=== PATIENT | male | born 1945 | race Caucasian/White ===

== ENCOUNTER 2019-12-21 08:36 | Outpatient (CLI) | payer MEDICARE, OTHER, SELFPAY ==
--- NOTE | 2019-12-21 09:00 | CT_ITS ---
WS: [id number] CT CHEST TECHNIQUE: Contrast enhanced CT of the chest with coronal and sagittal reformatted images. CLINICAL INFORMATION: lung nodule COMPARISON: Multiple Prior chest CTs including 10 25,018 and 9 ,017 DLP: 1138.[address] scans at [facility] use at least one of these dose optimization techniques: automat ed exposure control; mA and/or kV adjustment per patient size (includes targeted exams where dose is matched to clinical indication); or iterative reconstruction. FINDINGS: Moderate chronic emphysematous changes. No acute pulmonary infiltrates. No focal pneumonia. No consol idation or pleural fluid. Slight atelectasis in the lung bases. Previously described pulmonary nodule left upper lobe along the hilum measuring 6 mm is unchanged. A few calcified granulomas. Faint hazy groundglass opacity in the right upper lobe measuring 5 mm was present previously and unchanged. Scar tional tiny noncalcified pulmonary nodule right upper lobe subpleural measuring 3 mm is unchanged. Normal thyroid gland. Normal caliber thoracic aorta. Proximal main pulmonary arteries are normal. No mediastinal or hilar lymphadenopathy. No axillary lymphadenopathy. Adrenal glands are normal. Exophytic increased attenuation left renal lesion likely hemorrhagic cyst measuring 3.1 cm with additional smaller similar-appearing renal cyst. This can be followed up with u ltrasound. Small esophageal hiatal hernia. Fatty atrophy of the pancreas. CT/CT chest w con* [id number] IMPRESSION: 1. 6 mm noncalcified pulmonary nodule left upper lobe along the left hilum is unchanged. Additional faint hazy groundglass opacity in the right upper lobe me asuring 5 mm is also unchanged. 2. Tiny noncalcified nodule right upper lobe measuring 3 mm also stable. 3. Recommend 12 month follow-up. 4. No mediastinal or hilar lymphadenopathy. 5. Vascular calcification including coronary. 6. Small esophageal hiatal hernia. 7. Exophytic increased attenuation left renal lesion likely complex cysts. Thi s measures 3.1 cm and appears stable. This can be followed up with ultrasound.
[2019-12-21 09:33] LABS: Blood Urea Nitrogen 15 mg/dL (8-23)
[2019-12-21] MEDS: iodixanol 320 mg/mL 100mL Btl IV (09:39)
== END 2019-12-21 08:37 | disposition home or self-care (01) ==
PROVIDERS: Family Provider Family Medicine; PCP Family Medicine; Visit Provider Thoracic Surgery (Cardiothoracic Vascular Surgery)
DX: R91.1 Solitary pulmonary nodule (principal); K44.9 Diaphragmatic hernia without obstruction or gangrene; N28.9 Disorder of kidney and ureter, unspecified
CPT/HCPCS: 71260; 82565; 84520; Q9967

== ENCOUNTER 2020-02-02 20:07 | Emergency (ER) | payer MEDICARE, OTHER, SELFPAY ==
--- NOTE | 2020-02-02 20:14 | XR_ITS ---
WS: [id number] Portable AP upright chest, 02/02/2020 Clinical Data: sob Comparison: PA and lateral chest, 07/11/2014. Findings: No nodules, masses or effusions are seen. The heart is normal. The pulmonary vascularity is not increased. No pneumonia or pneumothorax is seen. The aortic arch and descending aorta are minima lly tortuous. XR/XR chest 1V portable [id number] Impression: Atherosclerosis.
[2020-02-02 21:04] VITALS: BP 162/86; PULSE 79; RESP 17; TEMP 36.9; O2SAT 97; BMI 30.5
--- NOTE | 2020-02-02 22:06 | ED_ITS ---
HPI - COVID General: Chief Complaint: COVID symptoms Stated Complaint: Covid symptoms/test today/ waiting room w/tv Time Seen by Provider: 02/02/20 21:58 Source: patient Mode of arrival: ambulatory Limitations: no limitations Triage information: Has fever, cough or shortness of breath . Exposure to COVID + person last 14 days History of Present Illness: HPI Narrative: Mr. Davis is a nice 74-year-old male comes in complaining of cough, headache and fever. Patient states his symptoms began last night. Fevers been as high as 102. His cough is dry and nonproductive. He has had some nauseousness but has not vomited. He denies any diarrhea or constipation. Patient has no known ill exposures but the Covid pandemic is rampant throughout her region at this time. Patient denies any history of lung problems but is a diabetic and has high blood pressure. He denies any chest pain or shortness of breath. COVID 19 common symptoms: positive fever(s), chills, non-productive cough, f atigue, body aches and nausea; negative productive cough, dyspnea, headache(s), throat pain, vomiting or diarrhea COVID 19 other sytmptoms: negative chest pain or confusion COVID Results: SARS-CoV-2 Antigen (Rapid) Pending 02/02/20 22:50 02/02/20 SARS-CoV-2 RNA (RT-PCR) Pending 02/02/20 14:34 02/02/20 Review of Systems Const: Reports: fever(s), chills, body aches, fatigue and malaise; Denies: diaphoresis Eyes: Denies: change in vision, blurry vision, photophobia, eye discomfort, eye discharge, eye redness or yellow eyes ENMT: Denies: throat pain, odynophagia, hoarseness, swelling of lips/tongue, ear or mastoid pain, ear discharge, change in hearing or nasal discharge Card: Denies: chest pain, palpitations, irregular heart rhythm, edema, lightheadedness, syncope, pre-syncope, dyspnea on exertion or orthopnea Resp: Reports: non-productive cough; Denies: dyspnea, productive cough, wheezing, hemoptysis or chest congestion GI: Reports: nausea; Denies: abdominal pain, vomiting, hematemesis, coffee ground emesis, heartburn, diarrhea, constipation, GI cramping, hematochezia or melena : Denies: flank pain, dysuria, urinary frequency, urinary urgency or hematuria Musc: Denies: neck pain, back pain, extremity pain, extremity swelling, joint pain, joint swelling, joint redness, joint warmth or joint stiffness Skin/Breast: Denies: rash, pruritus, erythema, skin pain or skin tenderness Neuro: Denies: headache(s), numbness in extremities, weakness in extremities, sensory changes, lack of coordination, difficulty walking, dizziness, vertigo, confusion, Slurred speech present or seizure-like activity Ken/Lymph: Denies: easy bruising, easy bleeding, petechiae, purpura or enlarged lymph nodes All/Imm: Denies: urticaria, throat swelling, tongue swelling, facial swelling or acute wheezing PFSH ED PFSH: Medical History DM type 2 (diabetes mellitus, type 2) Hypertension Lung nodule Surgical History H/O hernia repair History of left knee replacement History of throat surgery Family History Father CAD (coronary artery disease) Social History Smoking and tobacco status: current every day smoker smokeless tobacco Alcohol intake: never Physical Exam Const: COMMON NORMALS: no acute distress, patient oriented x3, no limitations and alert GENERAL APPEARANCE: cooperative HENMT: COMMON NORMALS: normocephalic, atraumatic, external ears normal, EAC's normal and Normal external nose present HEAD & SCALP: normal to inspection, normocephalic and atraumatic FACE & SINUS: normal facial exam and face symmetric NOSE: Normal external nose present and Normal nares present EXTERNAL EAR: Yes external ears normal EXTERNAL AUDITORY CANAL: EAC's normal MOUTH: Normal oral and palatal mucosa present, lip normal and tongue normal Eye: COMMON NORMALS: Equal, round and reactive pupils present and conjunctivae normal GENERAL EYE: appearance normal, both eyes and all related structures ALIGNMENT: Yes alignment normal PERIORBITAL: periorbital findings normal EYELID: eyelids normal CONJUNCTIVA: Yes conjunctivae normal SCLERA: sclerae normal PUPIL: Yes Equal, round and reactive pupils present Neck/C-Spine: COMMON NORMALS: full ROM, no lymphadenopathy, supple, no meningeal signs and no JVD GENERAL: Yes normal visual inspection and Yes trachea midline Chest: COMMONS NORMALS: normal inspection of the chest and normal palpation of entire chest wall Resp: COMMON NORMALS: normal respiratory effort, No retractions, No use of accessory muscles and clear to auscultation bilaterally EFFORT & INSPECTION: Yes able to speak in complete sentences and Yes symmetric chest movement AUSCULTATION: clear to auscultation bilaterally, no crackles, no rales, no rhonchi and no wheezes Cardio: COMMON NORMALS: no JVD, regular rate, regular rhythm, S1 normal heart sound present and S2 normal heart sound present RATE: regular rate RHYTHM: regular rhythm HEART SOUNDS: S1 normal heart sound present, S2 normal heart sound present, no click, no gallops, no murmurs and no rubs GI: COMMON NORMALS: Soft to palpation and No hepatosplenomegaly present PALPATION: Yes Soft to palpation, No Tenderness to palpation present (GI), No Guarding due to palpation present (GI), No Rigid due to palpation, Yes No hepatosplenomegaly present, No Hernia present, No Palpable mass present and No Pulsatile mass present : COMMON NORMALS: Yes no CVA tenderness BLADDER/KIDNEY EXAM: Yes no CVA tenderness Back/Pelvis: COMMON NORMALS: no CVA tenderness, thoracic and lumbar spine normal to inspection, no thoracic nor lumbar tenderness and thoraco-lumbar ROM normal Extremity: COMMON NORMALS: normal to inspection, full ROM, capillary refill normal, no joint enlargement, no clubbing, cyanosis or edema and no calf tenderness Neuro: COMMON NORMALS: patient oriented x3, CN's II-XII intact bilaterally, moves all extremities, no focal motor deficits and no sensory deficits noted SENSORIUM/ORIENTATION: Yes alert MENINGEAL SIGNS: Yes no meningeal signs SPEECH: speech normal Psych: COMMON NORMALS: mental status grossly normal, Normal thought process present, cooperative, normal affect, speech normal and activity/motor behavior normal SPEECH: Yes normal speech THOUGHT PROCESS: Normal thought process present Skin: COMMON NORMALS: no rashes or lesions noted, turgor normal, no jaundice, no petechiae and no mottling GENERAL SKIN EXAM: no rashes or lesions noted and turgor normal Course Vital Signs: Vital signs: Vital Signs Temperature 98.5 F 11/11/20 21:04 Pulse Rate 71 02/02/20 23:01 Respiratory Rate 18 02/02/20 23:01 Blood Pressure 160/82 02/02/20 23:01 Pulse Oximetry 97 02/02/20 23:02 MDM - COVID MDM Narrative Medical decision making narrative: [id number] -patient is now demanding to go. He wants to sign out AGAINST MEDICAL ADVICE. After much talking and coaxing him into stay the patient agrees at least to stay till he gets his Covid test. He is refusing a CT to evaluate for any pulmonary embolism. I have informed him that with all this this going on I cannot guarantee him that he is safe for discharge but no matter what I say the patient refuses to listen and demands that he be discharged soon of his Covid test is made known. Lab Data Attestation: I reviewed the patient's lab results. Result diagrams: 02/02/20 22:50 02/02/20 22:50 Labs: Lab Results 02/02/20 02/02/20 02/02/20 Range/Units 22:32 22:50 22:50 WBC 7.3 (4.0-10.0) 10^3/uL RBC 5.35 H (4.1-5.3) 10^6/uL Hgb 12.5 (11.7-16.6) g/dL Hct 41.4 L (42.0-52.0) % MCV 77.4 L (80-94) fL MCH 23.4 L (28.0-34.0) pg MCHC 30.2 (30.0-36.0) g/dL RDW 19.0 H (12.1-15.1) % Plt Count 261 (130-400) 10^3/cmm MPV 10.5 H (7.4-10.4) fL Neut % (Auto) 75.3 % Lymph % (Auto) 12.7 % Ward % (Auto) 10.5 % Eos % (Auto) 0.3 % Baso % (Auto) 0.7 % Neut # (Auto) 5.51 (1.8-7.7) 10^3/uL Lymph # (Auto) 0.9 (0.8-4.8) 10^3/uL Ward # (Auto) 0.8 (0.2-0.9) 10^3/uL Eos # (Auto) 0.0 (0.0-0.8) 10^3/uL Baso # (Auto) 0.1 (0.0-0.1) 10^3/uL Nucleated RBC % (auto) 0 % Nucleated RBCs # 0.0 /100WBC Fibrinogen 421 (174-498) mg/dL D-Dimer 0.69 H (0-0.59) ug/mIFEU Specimen Type Arterial Sample Site Brachial, left ABG pH 7.44 (7.35-7.45) ABG pCO2 35.0 (35-45) mmHg ABG pO2 72.6 L (80.0-100.0) mmHg ABG HCO3 23.9 (22-26) mmol/L ABG Base Excess 0.1 (-2.0-2.0) mmol/L Tyree Test N/a Hematocrit 36.1 L (42-52) % O2 Delivery Device Room air Grinder Operator External Tool ID [id number] Lactic Acid (0.5-2.2) mmol/L 02/02/20 Range/Units 22:50 WBC (4.0-10.0) 10^3/uL RBC (4.1-5.3) 10^6/uL Hgb (11.7-16.6) g/dL Hct (42.0-52.0) % MCV (80-94) fL MCH (28.0-34.0) pg MCHC (30.0-36.0) g/dL RDW (12.1-15.1) % Plt Count (130-400) 10^3/cmm MPV (7.4-10.4) fL Neut % (Auto) % Lymph % (Auto) % Ward % (Auto) % Eos % (Auto) % Baso % (Auto) % Neut # (Auto) (1.8-7.7) 10^3/uL Lymph # (Auto) (0.8-4.8) 10^3/uL Ward # (Auto) (0.2-0.9) 10^3/uL Eos # (Auto) (0.0-0.8) 10^3/uL Baso # (Auto) (0.0-0.1) 10^3/uL Nucleated RBC % (auto) % Nucleated RBCs # /100WBC Fibrinogen (174-498) mg/dL D-Dimer (0-0.59) ug/mIFEU Specimen Type Sample Site ABG pH (7.35-7.45) ABG pCO2 (35-45) mmHg ABG pO2 (80.0-100.0) mmHg ABG HCO3 (22-26) mmol/L ABG Base Excess (-2.0-2.0) mmol/L Tyree Test Hematocrit (42-52) % O2 Delivery Device Grinder Operator External Tool ID Lactic Acid 1.6 (0.5-2.2) mmol/L COVID Results: SARS-CoV-2 Antigen (Rapid) Pending 02/02/20 22:50 02/02/20 SARS-CoV-2 RNA (RT-PCR) Pending 02/02/20 14:34 02/02/20 Imaging Data CXR: Attestation: I personally reviewed and interpreted this imaging study as follows: My impression: No acute cardiopulmonary findings. EKG Data EKG 1: EKG interpretation date: 02/02/20 Interpretation: Sinu Discharge Plan Discharge Prescriptions: No Action tamsulosin 0.4 mg capsule 0.4 mg PO DAILY RF: 0 metformin 500 mg tablet 500 mg PO BID RF: 0 furosemide 20 mg tablet 20 mg PO DAILY RF: 0 Coding Level of Care Code ED Medical Lead for Chg Fwd Exam Comprehensive
[2020-02-02 22:43] LABS: ABG PH Result 7.44 (7.35-7.45); Arterial Blood Gas Hematocrit 36.1 % (42-52); Base Excess ABG 0.1 mmol/L (-2.0-2.0); Blood Gas Sample Site Brachial, left; Blood Gas Sample Type Arterial; HCO3 ABG 23.9 mmol/L (22-26); Oxygen Device ROOM AIR; PO2 ABG 72.6 mmHg (80.0-100.0)
[2020-02-02] MEDS: acetaminophen 500 mg Tablet 1000 MG PO (22:59)
[2020-02-02] MEDS: ondansetron 2 mg/ML SDV 2 mL 4 MG IV (22:59)
[2020-02-02] MEDS: sodium chloride 0.9% 1,000 ML 999 ML IV (22:59)
[2020-02-02 23:01] VITALS: BP 160/82; PULSE 71; RESP 18; O2SAT 97
[2020-02-02 23:02] VITALS: O2SAT 97
[2020-02-02 23:07] LABS: Basophils # 0.1 10^3/uL (0.0-0.1); Basophils % 0.7 %; Eosinophils % 0.3 %; Hematocrit 41.4 % (42.0-52.0); Hemoglobin 12.5 g/dL (11.7-16.6); Lymphocytes # 0.9 10^3/uL (0.8-4.8); Lymphocytes % 12.7 %; Mean Corpuscular HGB Conc 30.2 g/dL (30.0-36.0); Mean Corpuscular Hemoglobin 23.4 pg (28.0-34.0); Mean Corpuscular Volume 77.4 fL (80-94); Mean Platelet Volume 10.5 fL (7.4-10.4); Monocytes # 0.8 10^3/uL (0.2-0.9); Monocytes % 10.5 %; Neutrophils # 5.51 10^3/uL (1.8-7.7); Neutrophils % 75.3 %; Nucleated Red Blood Cells % 0 %; Platelet Count 261 10^3/cmm (130-400); Red Blood Count 5.35 10^6/uL (4.1-5.3); White Blood Count 7.3 10^3/uL (4.0-10.0)
[2020-02-02 23:27] LABS: Fibrinogen 421 mg/dL (174-498)
[2020-02-02 23:29] LABS: D Dimer 0.69 ug/mIFEU (0-0.59)
[2020-02-02 23:32] LABS: Lactic Sepsis W/Reflex 1.6 mmol/L (0.5-2.2)
[2020-02-02 23:43] LABS: Influenza A by IFA Negative (Negative); Influenza B by IFA Negative (Negative)
[2020-02-02 23:44] LABS: SARS Covid-2 Antigen Positive (Negative)
[2020-02-02 23:53] LABS: Alanine Aminotransferase 21 U/L (0-41); Albumin Level 4.1 g/dL (3.5-5.2); Alkaline Phosphatase 110 IU/L (40-130); C Reactive Protein 9.9 mg/L (0.0-4.9); Chloride 98 mmol/L (98-107); Lactate Dehydrogenase 166 U/L (135-225); Potassium 3.7 mmol/L (3.5-5.1); Sodium 135 mmol/L (136-145)
[2020-02-03 00:21] LABS: Anion Gap 16.7 (5-19); Aspartate Amino Transferase 25 U/L (0-40); Blood Urea Nitrogen 17 mg/dL (8-23); Calcium 9.4 mg/dL (8.5-10.5); Carbon Dioxide 24 mmol/L (22-29); Globulin 3.8 g/dL (1.3-4.6); Glucose 206 mg/dL (65-115); Magnesium 2.1 mg/dL (1.7-2.3); Osmolality Calculated 288 mOsm/kg (285-295); Total Bilirubin 0.2 mg/dL (0.15-1.2); Total Protein 7.9 g/dL (6.6-8.7)
--- NOTE | 2020-02-03 00:41 | PC.NURSE ---
Patient stated that he was tired of waiting and wanted to leave AMA. ED physician was notified and went in to talk with patient. Patient refused 2nd liter of IV fluids and signed AMA paperwork. IV catheter was intact upon removal.
[2020-02-03 00:48] VITALS: BP 130/74; PULSE 66; O2SAT 98
--- NOTE | 2020-02-04 04:43 | PC.NURSE ---
Lab called positive blood culture bottle with gram + cocci in clusters, notified Dr. Arevalo. Was advised to wait for final culture report to result.
== END 2020-02-03 00:48 | disposition left against medical advice (07) ==
PROVIDERS: Emergency Provider Emergency Medicine; PCP Family Medicine
DX: R05 Cough (principal); R51.9 Headache, unspecified; R50.9 Fever, unspecified; U07.1 COVID-19; Z79.84 Long term (current) use of oral hypoglycemic drugs; E11.9 Type 2 diabetes mellitus without complications; I10 Essential (primary) hypertension; F17.210 Nicotine dependence, cigarettes, uncomplicated; Z53.21 Procedure and treatment not carried out due to patient leaving prior to being seen by health care provider
CPT/HCPCS: 12345; 36600; 71045; 80053; 82803; 83605; 83615; 83735; 84145; 85025; 85378; 85384; 86140; 87040; 87205; 87426; 87635; 87804; 96361; 96374; 99282; 99284; J2405; J7030

== ENCOUNTER 2020-02-09 10:15 | Inpatient (IN) | payer MEDICARE, OTHER, SELFPAY ==
[2020-02-09] VITALS (49 sets, daily range): BP systolic 109–157; BP diastolic 54–98; PULSE 55–90; RESP 12–34; TEMP 37–38.2; O2SAT 89–97; BMI 30.5
--- NOTE | 2020-02-09 10:36 | XR_ITS ---
WS: [id number] Exam: XR chest 1V portable [id number] Date/Time of Exam: 02/09/2020 10:36 AM Reason For Exam: dyspnea Comparison 02/02/2020. Mild infiltrate in the left lower lobe. The right lung is clear. The lungs are fully expanded. Unrema rkable cardiomediastinal structures. No pleural effusions. Regional bony elements are intact. XR/XR chest 1V portable [id number] IMPRESSION: 1. Small right lower lobe infiltrate noted suspicious for pneumonia.
[2020-02-09 11:07] LABS: Basophils % 0.2 %; Hematocrit 37.8 % (42.0-52.0); Hemoglobin 11.3 g/dL (11.7-16.6); Lymphocytes # 0.7 10^3/uL (0.8-4.8); Lymphocytes % 15.2 %; Mean Corpuscular HGB Conc 29.9 g/dL (30.0-36.0); Mean Corpuscular Hemoglobin 22.8 pg (28.0-34.0); Mean Corpuscular Volume 76.2 fL (80-94); Mean Platelet Volume 10.1 fL (7.4-10.4); Monocytes # 0.3 10^3/uL (0.2-0.9); Monocytes % 5.9 %; Neutrophils # 3.45 10^3/uL (1.8-7.7); Neutrophils % 78.2 %; Nucleated Red Blood Cells % 0 %; Platelet Count 205 10^3/cmm (130-400); Red Blood Count 4.96 10^6/uL (4.1-5.3); Red Cell Distribution Width 18.8 % (12.1-15.1); White Blood Count 4.4 10^3/uL (4.0-10.0)
[2020-02-09 11:22] LABS: D Dimer 0.61 ug/mIFEU (0-0.59)
[2020-02-09 11:24] LABS: Alanine Aminotransferase 66 U/L (0-41); Albumin Level 3.3 g/dL (3.5-5.2); Alkaline Phosphatase 90 IU/L (40-130); Anion Gap 15.1 (5-19); Aspartate Amino Transferase 111 U/L (0-40); Blood Urea Nitrogen 14 mg/dL (8-23); Calcium 8.1 mg/dL (8.5-10.5); Carbon Dioxide 25 mmol/L (22-29); Chloride 97 mmol/L (98-107); Globulin 3.3 g/dL (1.3-4.6); Glucose 186 mg/dL (65-115); Osmolality Calculated 283 mOsm/kg (285-295); Potassium 3.1 mmol/L (3.5-5.1); Sodium 134 mmol/L (136-145); Total Bilirubin 0.2 mg/dL (0.15-1.2); Total Protein 6.6 g/dL (6.6-8.7)
[2020-02-09 11:24] LABS: ABG PCO2 33.9 mmHg (35-45); ABG PH Result 7.45 (7.35-7.45); Arterial Blood Gas Hematocrit 36.7 % (42-52); Base Excess ABG 0.2 mmol/L (-2.0-2.0); Blood Gas Allen Test Pos; Blood Gas Operator Identificat BD; Blood Gas Sample Site Radial, left; Blood Gas Sample Type Arterial; HCO3 ABG 23.7 mmol/L (22-26); Oxygen Device NC; PO2 ABG 77.7 mmHg (80.0-100.0)
--- NOTE | 2020-02-09 11:26 | W.ED.COVID ---
HPI - COVID General: Chief Complaint: COVID symptoms Stated Complaint: covid +, worsening symptoms Time Seen by Provider: 02/09/20 10:20 Triage information: Has fever, cough or shortness of breath. Exposure to COVID + person last 14 days History of Present Illness: HPI Narrative: 74-year-old male directed to the emergency room by his primary care provider complaining of shortness of breath. He was diagnosed by PCR swab with Covid 8 days ago. He was doing well up until yesterday and he began to notice his oxygen sats drop which has been monitoring at home he is up to 3 L by nasal cannula today to maintain his sats. He has generalized weakness myalgias as well he had some diarrhea initially but that has improved. MD complaint: known COVID positive Prior covid testing: yes, results known COVID 19 common symptoms: positive fever(s), chills, cough, non-productive cough, dyspnea, fatigue, body aches, throat pain, nasal congestion and nausea COVID 19 other sytmptoms: positive chest pressure; negative chest pain Onset (ago): day(s) (8) Severity: moderate Pertinent comorbid conditions: diabetes, hypertension, heart disease, COPD/respiratory disease and recent ED visit for same complaint Treatment prior to arrival: acetaminophen COVID Results: SARS-CoV-2 Antigen (Rapid) Positive (Negative) H 02/02/20 22:50 02/02/20 SARS-CoV-2 RNA (RT-PCR) Detected (NOT DETECTED) A 02/02/20 14:34 02/02/20 Review of Systems Const: Reports: fever(s), chills, body aches and fatigue ENMT: Reports: throat pain and nasal congestion Card: Denies: chest pain, edema, dyspnea on exertion or orthopnea Resp: Reports: dyspnea and non-productive cough GI: Reports: nausea : Denies: flank pain, dysuria, urinary frequency or urinary urgency Skin/Breast: Denies: rash or pruritus PFSH ED PFSH: Medical History DM type 2 (diabetes mellitus, type 2) Hypertension Lung nodule Surgical History H/O hernia repair History of left knee replacement History of throat surgery Family History Father CAD (coronary artery disease) Social History Smoking and tobacco status: former smoker Alcohol intake: never Substance/Drug Use: never Physical Exam Const: COMMON NORMALS: no acute distress GENERAL APPEARANCE: cooperative and comfortable ORIENTATION/CONSCIOUSNESS: Yes awake, Yes oriented to person, Yes oriented to place and Yes oriented to time HENMT: COMMON NORMALS: normocephalic, atraumatic and hearing grossly normal bilaterally HEAD & SCALP: normocephalic and atraumatic Eye: COMMON NORMALS: Equal, round and reactive pupils present, EOMs intact bilaterally, conjunctivae normal and no scleral icterus CONJUNCTIVA: Yes conjunctivae normal PUPIL: Yes Equal, round and reactive pupils present Neck/C-Spine: COMMON NORMALS: full ROM, no lymphadenopathy, supple and no JVD Lymph: LYMPHATIC: no lymphadenopathy noted and no lymphedema noted Resp: COMMON NORMALS: normal respiratory effort, No retractions, No use of accessory muscles and clear to auscultation bilaterally AUSCULTATION: clear to auscultation bilaterally Cardio: COMMON NORMALS: no JVD, regular rate, regular rhythm and No murmurs present (Cardio) RATE: regular rate RHYTHM: regular rhythm GI: COMMON NORMALS: Soft to palpation and No hepatosplenomegaly present AUSCULTATION: Yes normoactive bowel sounds PALPATION: Yes Soft to palpation, No Tenderness to palpation present (GI), No Guarding due to palpation present (GI) and Yes No hepatosplenomegaly present Extremity: COMMON NORMALS: normal to inspection, capillary refill normal, no clubbing, cyanosis or edema, no calf tenderness and no pedal edema Neuro: SENSORIUM/ORIENTATION: Yes oriented to person, Yes oriented to place and Yes oriented to time Skin: COMMON NORMALS: no rashes or lesions noted GENERAL SKIN EXAM: no rashes or lesions noted Course Vital Signs: Vital signs: Vital Signs Temperature 99.5 F 02/09/20 10:24 Pulse Rate 77 02/09/20 13:00 Respiratory Rate 18 02/09/20 12:00 Blood Pressure 131/72 02/09/20 13:00 Pulse Oximetry 94 02/09/20 13:00 MDM - COVID MDM Narrative: Medical decision making narrative: Patient has significant comorbid risk factors for developing worsening Covid pneumonitis he already has signs present on his CT as well as with developing hypoxia and increasing oxygen need recommend that he be admitted and observed I suspect he will continue to worsen. He has been given dexamethasone as well as remdesivir Lab Data: Labs: Lab Results 02/09/20 02/09/20 02/09/20 Range/Units 10:56 10:56 10:56 WBC 4.4 (4.0-10.0) 10^3/ uL RBC 4.96 (4.1-5.3) 10^6/u L Hgb 11.3 L (11.7-16.6) g/dL Hct 37.8 L (42.0-52.0) % MCV 76.2 L (80-94) fL MCH 22.8 L (28.0-34.0) pg MCHC 29.9 L (30.0-36.0) g/dL RDW 18.8 H (12.1-15.1) % Plt Count 205 (130-400) 10^3/c mm MPV 10.1 (7.4-10.4) fL Neut % (Auto) 78.2 % Lymph % (Auto) 15.2 % [place] % (Auto) 5.9 % Eos % (Auto) 0.0 % Baso % (Auto) 0.2 % Neut # (Auto) 3.45 (1.8-7.7) 10^3/u L Lymph # (Auto) 0.7 L (0.8-4.8) 10^3/u L [place] # (Auto) 0.3 (0.2-0.9) 10^3/u L Eos # (Auto) 0.0 (0.0-0.8) 10^3/u L Baso # (Auto) 0.0 (0.0-0.1) 10^3/u L Nucleated RBC % (a uto) 0 % Nucleated RBCs # 0.0 /100WBC D-Dimer 0.61 H (0-0.59) ug/mIFE U Specimen Type Sample Site ABG pH (7.35-7.45) ABG pCO2 (35-45) mmHg ABG pO2 (80.0-100.0) mmH g ABG HCO3 (22-26) mmol/L ABG Base Excess (-2.0-2.0) mmol/ L Tyree Test Hematocrit (42-52) % O2 Delivery Device O2 Liters/Min % FiO2 % Plumbing Engineering Draftsperson ID Sodium 134 L (136-145) mmol/L Potassium 3.1 L (3.5-5.1) mmol/L Chloride 97 L (98-107) mmol/L Carbon Dioxide 25 (22-29) mmol/L Anion Gap 15.1 (5-19) BUN 14 (8-23) mg/dL Creatinine 1.5 H (0.7-1.2) mg/dL GFR Calculation Not Reportable Glucose 186 H (65-115) mg/dL Calculated Osmolal ity 283 L (285-295) mOsm/k g Calcium 8.1 L (8.5-10.5) mg/dL Total Bilirubin 0.2 (0.15-1.2) mg/dL AST 111 H (0-40) U/L ALT 66 H (0-41) U/L Alkaline Phosphata se 90 (40-130) IU/L Total Protein 6.6 (6.6-8.7) g/dL Albumin 3.3 L (3.5-5.2) g/dL Globulin 3.3 (1.3-4.6) g/dL 02/08/ Range/Units 11:10 WBC (4.0-10.0) 10^3/ uL RBC (4.1-5.3) 10^6/u L Hgb (11.7-16.6) g/dL Hct (42.0-52.0) % MCV (80-94) fL MCH (28.0-34.0) pg MCHC (30.0-36.0) g/dL RDW (12.1-15.1) % Plt Count (130-400) 10^3/c mm MPV (7.4-10.4) fL Neut % (Auto) % Lymph % (Auto) % [place] % (Auto) % Eos % (Auto) % Baso % (Auto) % Neut # (Auto) (1.8-7.7) 10^3/u L Lymph # (Auto) (0.8-4.8) 10^3/u L [place]eca # (Auto) (0.2-0.9) 10^3/u L Eos # (Auto) (0.0-0.8) 10^3/u L Baso # (Auto) (0.0-0.1) 10^3/u L Nucleated RBC % (a uto) % Nucleated RBCs # /100WBC D-Dimer (0-0.59) ug/mIFE U Specimen Type Arterial Sample Site Radial, left ABG pH 7.45 (7.35-7.45) ABG pCO2 33.9 L (35-45) mmHg ABG pO2 77.7 L (80.0-100.0) mmH g ABG HCO3 23.7 (22-26) mmol/L ABG Base Excess 0.2 (-2.0-2.0) mmol/ L Tyree Test Pos Hematocrit 36.7 L (42-52) % O2 Delivery Device Nc O2 Liters/Min 3.0 % FiO2 32.0 % Plumbing Engineering Draftsperson ID Bd Sodium (136-145) mmol/L Potassium (3.5-5.1) mmol/L Chloride (98-107) mmol/L Carbon Dioxide (22-29) mmol/L Anion Gap (5-19) BUN (8-23) mg/dL Creatinine (0.7-1.2) mg/dL GFR Calculation Glucose (65-115) mg/dL Calculated Osmolal ity (285-295) mOsm/k g Calcium (8.5-10.5) mg/dL Total Bilirubin (0.15-1.2) mg/dL AST (0-40) U/L ALT (0-41) U/L Alkaline Phosphata se (40-130) IU/L Total Protein (6.6-8.7) g/dL Albumin (3.5-5.2) g/dL Globulin (1.3-4.6) g/dL COVID Results: SARS-CoV-2 Antigen (Rapid) Positive (Negative) H 02/02/20 22:50 02/02/20 SARS-CoV-2 RNA (RT-PCR) Detected (NOT DETECTED) A 02/02/20 14:34 02/02/20 Discharge Plan Discharge Patient Disposition: Admitted As Inpatient Clinical Impression: COVID-19 virus infection, DM type 2 (diabetes mellitus, type 2), COPD (chronic obstructive pulmonary disease), HTN (hypertension) Condition: Stable Prescriptions: No Action tamsulosin 0.4 mg capsule 0.4 mg PO DAILY RF: 0 metformin 500 mg tablet 500 mg PO BID RF: 0 furosemide 20 mg tablet 20 mg PO DAILY RF: 0 Referrals: Sean Rivera MD [Primary Care Provider] - Coding Level of Care Code ED Sustainability Analyst for Chg Fwd Exam Comprehensive
--- NOTE | 2020-02-09 11:27 | CTR_ITS ---
PROCEDURE INFORMATION: Exam: CT Angiography Chest With Contrast Exam date and time: 02/09/2020 11:41 AM Age: 74 years old Clinical indication: Shortness of breath; Covid-19; hypoxia. TECHNIQUE: Imaging protocol: Computed tomographic angiography of the chest with intravenous contrast. 3D rendering (Not supervised by radiologist): MIP and/or 3D reconstructed images were created by the technologist. Radiation optimization: All CT scans at this facility use at least one of these dose optimization techniques: automated exposure control; mA and/or kV adjustment per patient size (includes targeted exams where dose is matched to clinical indication); or iterative reconstruction. Contrast material: VISIPAQUE; Contrast volume: 95 ml; Contrast route: INTRAVENOUS (IV); COMPARISON: CT CHEST 12/21/2019 9:37 AM RADIATION DOSE METRICS: Total DLP (mGy-cm): 640.7 FINDINGS: Pulmonary arteries: No sign of pulmonary embolism. Aorta: No thoracic aortic aneurysm or dissection. Lungs: There are bilateral, ill-defined, peripheral ground-glass opacities in both lungs, more so on the left, compatible with COVID-19 pneumonia given the history. The previously described small lung nodules are obscured by the pneumonia. Mild bilateral centrilobular emphysema. Pleural space: No pleural effusion or pneumothorax. Heart: The heart is not enlarged. No pericardial effusion. Mediastinal space: Small sliding hiatal hernia. Lymph nodes: No enlarged lymph nodes. Bones/joints: There is diffuse idiopathic skeletal hyperostosis. Soft tissues: No acute soft tissue abnormality. CT/CT angio chest PE protcl [id number] IMPRESSION: 1. No pulmonary embolism. 2. Commonly reported imaging features of COVID-19 pneumonia are present. Radiation Dose CTDIVOL = (mGy): DLP = 640.7 (mGy-cm)
[2020-02-09] MEDS: iodixanol 320 mg/mL 100mL Btl IV (13:14)
[2020-02-09] MEDS: dexamethasone 4 mg/mL INJ 6 MG IVP (14:07)
--- NOTE | 2020-02-09 14:53 | PM.HP ---
Providers/Chief Complaint Admitting Physician: Van Macario MD Primary Care Provider: Sean Rivera MD Chief Complaint: SOB, FATIGUE, FEVER History of Present Illness Richmond Davis is a 74 year old male with a past medical history of noninsulin-dependent type 2 diabetes mellitus, hypertension, COPD who presents to [facility] due to complaints of fatigue, malaise, shortness of breath, desaturations. Patient tells me that on 02/02/2020 he tested positive for COVID-19, since then he has had fevers, chills, shortness of breath with exertion, he tells me he has daily fevers as high as 102, chills, he feels really bad when he happens fevers. He tells me that he has been monitoring his oxygen saturations on the pulse ox, and lately they have been in the low 90s, so he presented to Dr. Rivera's office, Dr. Rivera was worried about his increased oxygen requirements, shortness of breath so he told him to come to the emergency room. Review of Systems Const: Reports: fever(s), chills, fatigue and malaise Eyes: Denies: change in vision or blurry vision ENMT: Denies: nasal congestion Card: Denies: chest pain or palpitations Resp: Reports: dyspnea GI: Denies: abdominal pain, nausea, vomiting, hematemesis, diarrhea, constipation, hematochezia or melena : Denies: flank pain, difficulty urinating, dysuria or urinary frequency Musc: Denies: neck pain or back pain Skin/Breast: Denies: rash Neuro: Denies: headache(s), dizziness or vertigo Psych: Denies: anxiety or depression Endo: Denies: polyuria or polydipsia Medications/Allergies Home Medications Medication Instructions Recorded Confirmed Last Taken Type metformin 500 mg tablet 500 mg PO BID 01/06/20 02/09/20 02/09/20 History tamsulosin 0.4 mg capsule 0.4 mg PO DAILY 01/06/20 02/09/20 02/09/20 History hydrochlorothiazide 25 mg PO DAILY 02/09/20 02/09/20 02/09/20 History Allergies Allergy/AdvReac Type Severity Reaction Status Date / Time No Known Allergies Allergy Unverified 02/02/20 14:07 PFSH Acute PFSH: Medical History (Updated 02/09/20 @ 14:57 by Van Macario MD) COPD (chronic obstructive pulmonary disease) DM type 2 (diabetes mellitus, type 2) Hypertension Lung nodule Surgical History H/O hernia repair History of left knee replacement History of throat surgery Family History (Updated 02/09/20 @ 14:55 by Van Macario MD) Father CAD (coronary artery disease) Mother Alzheimer's dementia Social History Smoking and tobacco status: former smoker Alcohol intake: never Substance/Drug Use: never Vitals/I&O/Wt Last Vital Signs Temp 99.5 F 02/09/20 10:24 Pulse 76 02/09/20 14:30 Resp 20 H 02/09/20 14:30 BP 118/83 02/09/20 14:30 Pulse Ox 94 02/09/20 14:30 Weight last 48 hrs Weight 102.058 kg Physical Exam Const: COMMON NORMALS: no acute distress and patient oriented x3 GENERAL APPEARANCE: cooperative and comfortable HENMT: COMMON NORMALS: normocephalic HEAD & SCALP: normocephalic Eye: COMMON NORMALS: Equal, round and reactive pupils present and EOMs intact bilaterally GENERAL EYE: appearance normal, both eyes and all related structures PUPIL: Yes Equal, round and reactive pupils present Neck/C-Spine: COMMON NORMALS: full ROM, no lymphadenopathy, no JVD and Thyroid normal THYROID: Thyroid normal Lymph: LYMPHATIC: no lymphadenopathy noted Resp: COMMON NORMALS: normal respiratory effort, No retractions and No use of accessory muscles AUSCULTATION: wheezes Cardio: COMMON NORMALS: no JVD, regular rate, regular rhythm, S1 normal heart sound present, S2 normal heart sound present, No gallops present (Cardio), No clicks present (Cardio) and No murmurs present (Cardio) RATE: regular rate RHYTHM: regular rhythm HEART SOUNDS: S1 normal heart sound present and S2 normal heart sound present GI: COMMON NORMALS: Normal to inspection, nondistended, normoactive bowel sounds present, Soft to palpation, non-tender and No hepatosplenomegaly present PALPATION: Yes Soft to palpation and Yes No hepatosplenomegaly present Extremity: COMMON NORMALS: normal to inspection, full ROM and no pedal edema Neuro: COMMON NORMALS: patient oriented x3, CN's II-XII intact bilaterally, moves all extremities and no focal motor deficits Psych: COMMON NORMALS: mental status grossly normal, Normal thought process present and cooperative THOUGHT PROCESS: Normal thought process present Data : 02/09/20 10:56 02/09/20 10:56 A&P Assessment and plan (1) Acute respiratory failure with hypoxia: -Risk factors include COPD, obesity, type 2 diabetes -CT angiogram of the chest shows diffuse groundglass opacities, some lobar consolidation in bilateral lungs, there is also bullae present in areas of concern as above -Concerning for COVID-19 pneumonia, viral pneumonitis, secondary bacterial infection Plan: -Admit to viral ICU -Patient is a full code -Lovenox for DVT prophylaxis, hold off on therapeutic dose as D-dimer minimally elevated -Protonix for GI prophylaxis -Advair, Spiriva, albuterol -Vitamin C, zinc -Sputum cultures, blood cultures, urine bacterial antigens -Rocephin and azithromycin -Decadron -Remdesivir Status: Acute (2) COPD (chronic obstructive pulmonary disease): Status: Acute (3) COVID-19 virus infection: Status: Acute (4) HTN (hypertension): Status: Acute (5) DM type 2 (diabetes mellitus, type 2): Low-dose sliding scale, monitor blood sugars carefully as he is on Decadron Status: Acute (6) Secondary bacterial pneumonia: Status: Acute (7) Hypokalemia: Give 40 mEq of Klor-Con Status: Acute (8) Acute kidney injury superimposed on chronic kidney disease: -Creatinine 1.5, baseline 1.3, give 500 cc bolus Status: Acute Attestations Medical Necessity Statement*: Patient requires hospitalization, inpatient, greater than 2 midnights, for acute respiratory failure with hypoxia secondary COVID-19 pneumonia, secondary bacterial pneumonia, acute kidney injury on chronic kidney disease, hypokalemia Coding Level of Care 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
[2020-02-09 16:43] LABS: Glucose Point of Care 187 mg/dL (70-110)
[2020-02-09] MEDS: enoxaparin 40 mg/0.4 mL Syringe SUBCUT (17:53)
[2020-02-09] MEDS: ascorbic acid 500 mg Tablet 1000 MG PO (17:53)
[2020-02-09] MEDS: cefTRIAXone 1,000 MG in sodium chloride 0.9% (plus) 50 ML 100 MG IV (18:11)
[2020-02-09] MEDS: azithromycin 500 MG in sodium chloride 0.9% 250 ML 250 MG IV (18:11)
[2020-02-09 18:34] LABS: Chol HDL Ratio 2.94 mg/dL (1.0-5.00); Cholesterol 94 mg/dL (0-200); HDL Cholesterol 32 mg/dL (60-100); LDL Cholesterol Calculated 43 mg/dL (50-129); LDL HDL Ratio 1.34 RATIO (0.00-3.22); Thyroid Stimulating Hormone 1.68 uIU/mL (0.27-4.20); Triglycerides 97 mg/dL (0-150)
[2020-02-09 20:50] LABS: Glucose Point of Care 308 mg/dL (70-110)
[2020-02-09 21:54] LABS: Lactate (Lactic Acid level) 2.4 mmol/L (0.5-2.2)
[2020-02-09] MEDS: sodium chloride 0.9% 500 ML 75 ML IV (21:54)
[2020-02-10] VITALS (27 sets, daily range): BP systolic 106–148; BP diastolic 49–93; PULSE 50–83; RESP 15–24; TEMP 36.6–36.8; O2SAT 89–96
[2020-02-10 04:28] LABS: Basophils % 0.4 %; Hematocrit 37.7 % (42.0-52.0); Hemoglobin 11.1 g/dL (11.7-16.6); Lymphocytes # 0.8 10^3/uL (0.8-4.8); Lymphocytes % 33.1 %; Mean Corpuscular HGB Conc 29.4 g/dL (30.0-36.0); Mean Corpuscular Hemoglobin 22.9 pg (28.0-34.0); Mean Corpuscular Volume 77.9 fL (80-94); Mean Platelet Volume 10.4 fL (7.4-10.4); Monocytes # 0.2 10^3/uL (0.2-0.9); Neutrophils # 1.39 10^3/uL (1.8-7.7); Neutrophils % 56.7 %; Nucleated Red Blood Cells % 0 %; Platelet Count 221 10^3/cmm (130-400); Red Blood Count 4.84 10^6/uL (4.1-5.3); Red Cell Distribution Width 18.8 % (12.1-15.1); White Blood Count 2.5 10^3/uL (4.0-10.0)
[2020-02-10 04:55] LABS: Anion Gap 18.7 (5-19); Blood Urea Nitrogen 18 mg/dL (8-23); Carbon Dioxide 20 mmol/L (22-29); Chloride 103 mmol/L (98-107); Glucose 196 mg/dL (65-115); Osmolality Calculated 293 mOsm/kg (285-295); Potassium 3.7 mmol/L (3.5-5.1); Sodium 138 mmol/L (136-145)
[2020-02-10 05:00] LABS: INR 1.05 (0.8-1.2)
[2020-02-10 05:02] LABS: D Dimer 0.61 ug/mIFEU (0-0.59)
[2020-02-10 05:10] LABS: NT Pro B Type Natriuretic Pept 88 pg/mL (0-450); Procalcitonin 0.18 ng/mL (0-0.5)
[2020-02-10 05:38] LABS: Creatine Phosphokinase 512 U/L (39-308)
[2020-02-10 06:50] LABS: Slide Review Slide Review Perform
--- NOTE | 2020-02-10 07:00 | XR_ITS ---
WS: [id number] Exam: XR chest 1V portable [id number] Date/Time of Exam: 02/10/2020 7:00 AM Reason For Exam: sob Comparison 02/09/2020. Small right lower lobe infiltrate is noted unchanged. Remaining lung covington are clear. No pneumothora x or pleural effusion. Cardiomediastinal structures appear normal for technique. Bony elements are in tact. XR/XR chest 1V portable [id number] IMPRESSION: 1. Small infiltrate-atelectasis in the right lower lung zone unchanged.
[2020-02-10 07:08] LABS: Estmated Average Glucose 206; Hemoglobin A1C 8.8 % (4.0-6.0)
[2020-02-10 07:19] LABS: Alanine Aminotransferase 70 U/L (0-41); Albumin Level 3.1 g/dL (3.5-5.2); Alkaline Phosphatase 93 IU/L (40-130); Anion Gap 22.6 (5-19); Aspartate Amino Transferase 110 U/L (0-40); Blood Urea Nitrogen 18 mg/dL (8-23); C Reactive Protein 54.6 mg/L (0.0-4.9); Calcium 8.1 mg/dL (8.5-10.5); Carbon Dioxide 17 mmol/L (22-29); Chloride 100 mmol/L (98-107); Globulin 3.5 g/dL (1.3-4.6); Glucose 203 mg/dL (65-115); Magnesium 2.1 mg/dL (1.7-2.3); Osmolality Calculated 290 mOsm/kg (285-295); Phosphorus 2.4 mg/dL (2.5-4.5); Potassium 3.6 mmol/L (3.5-5.1); Sodium 136 mmol/L (136-145); Total Bilirubin 0.2 mg/dL (0.15-1.2); Total Protein 6.6 g/dL (6.6-8.7)
[2020-02-10 07:56] LABS: Glucose Point of Care 179 mg/dL (70-110)
[2020-02-10] MEDS: dexamethasone 4 mg/mL INJ 6 MG IVP (09:15)
[2020-02-10] MEDS: ascorbic acid 500 mg Tablet 1000 MG PO ×2 (09:16→17:02)
[2020-02-10] MEDS: zinc gluconate 50 mg Tablet PO (09:16)
[2020-02-10] MEDS: hydroCHLOROthiazide 25 mg Tablet PO (09:16)
[2020-02-10] MEDS: tamsulosin 0.4 mg Capsule PO (09:16)
[2020-02-10] MEDS: phosphorus 250 mg Tablet PO ×2 (09:16→17:03)
[2020-02-10 11:46] LABS: Glucose Point of Care 229 mg/dL (70-110)
--- NOTE | 2020-02-10 12:02 | PM.PN ---
Subjective Subjective: Interval history: This morning patient was examined, he is in bed, still complaining of some shortness of breath, no fevers, no chills, no nausea, no vomiting, has some degree of a poor appetite Vitals/I&O/Wt Last Vital Signs Temp 98.0 F 02/10/20 08:00 Pulse 62 02/10/20 08:42 Resp 18 02/10/20 08:42 BP 111/52 02/10/20 08:00 Pulse Ox 95 02/10/20 08:42 02/09/20 02/10/20 02/10/20 22:59 06:59 14:59 Intake Total 290 / 290 160 / 450 1100 / 1100 Output Total 100 / 100 500 / 600 200 / 200 Balance 190 / 190 -340 / -150 900 / 900 Weight last 48 hrs Weight 99.7 kg Weight 100.414 kg Weight 102.058 kg Physical Exam Const: COMMON NORMALS: no acute distress and patient oriented x3 HENMT: COMMON NORMALS: normocephalic HEAD & SCALP: normocephalic Neck/C-Spine: COMMON NORMALS: no JVD Resp: COMMON NORMALS: normal respiratory effort, No retractions, No use of accessory muscles and clear to auscultation bilaterally AUSCULTATION: clear to auscultation bilaterally Cardio: COMMON NORMALS: no JVD, regular rate, regular rhythm, S1 normal heart sound present and S2 normal heart sound present RATE: regular rate RHYTHM: regular rhythm HEART SOUNDS: S1 normal heart sound present and S2 normal heart sound present GI: COMMON NORMALS: Normal to inspection, nondistended, normoactive bowel sounds present, Soft to palpation, non-tender, No hepatosplenomegaly present, no masses and no bruits PALPATION: Yes Soft to palpation and Yes No hepatosplenomegaly present Extremity: COMMON NORMALS: capillary refill normal, no clubbing, cyanosis or edema, no calf tenderness and no pedal edema Neuro: COMMON NORMALS: patient oriented x3 Psych: COMMON NORMALS: mental status grossly normal Data : 02/10/20 03:46 02/10/20 03:46 Micro: Microbiology 02/09/20 21:20 Blood Culture - Preliminary Blood SPECIMEN COLLECTED 02/09/20 21:20 Blood Culture - Preliminary Blood SPECIMEN COLLECTED A&P Assessment and plan (1) Acute respiratory failure with hypoxia: -Risk factors include COPD, obesity, type 2 diabetes -CT angiogram of the chest shows diffuse groundglass opacities, some lobar consolidation in bilateral lungs, there is also bullae present in areas of concern as above -Concerning for COVID-19 pneumonia, viral pneumonitis, secondary bacterial infection Plan: -Admit to viral ICU -Patient is a full code -Lovenox for DVT prophylaxis, hold off on therapeutic dose as D-dimer minimally elevated -Protonix for GI prophylaxis -Advair, Spiriva, albuterol -Vitamin C, zinc -Sputum cultures, blood cultures, urine bacterial antigens -Rocephin and azithromycin -Decadron -Remdesivir Status: Acute (2) COPD (chronic obstructive pulmonary disease): Status: Acute (3) COVID-19 virus infection: Status: Acute (4) HTN (hypertension): Status: Acute (5) DM type 2 (diabetes mellitus, type 2): Low-dose sliding scale, monitor blood sugars carefully as he is on Decadron Status: Acute (6) Secondary bacterial pneumonia: Status: Acute (7) Hypokalemia: Give 40 mEq of Klor-Con Status: Acute (8) Acute kidney injury superimposed on chronic kidney disease: -Creatinine 1.5, baseline 1.3, give 500 cc bolus Status: Acute Additional A&P Information Plan for today is to get up out of bed, continue ambulation, aggressive pulmonary toilet Attestations Medical Necessity Statement*: Patient requires hospitalization for acute respiratory failure with hypoxia secondary to COVID-19 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
--- NOTE | 2020-02-10 15:52 | PC.RESP ---
Pulmonary Rehab information sent to patient.
[2020-02-10] MEDS: enoxaparin 40 mg/0.4 mL Syringe SUBCUT (16:59)
[2020-02-10] MEDS: cefTRIAXone 1,000 MG in sodium chloride 0.9% (plus) 50 ML 100 MG IV (17:02)
[2020-02-10 17:16] LABS: Glucose Point of Care 225 mg/dL (70-110)
[2020-02-10] MEDS: azithromycin 500 MG in sodium chloride 0.9% 250 ML 250 MG IV (21:03)
[2020-02-10 21:22] LABS: Glucose Point of Care 246 mg/dL (70-110)
[2020-02-11] VITALS (19 sets, daily range): BP systolic 106–151; BP diastolic 48–85; PULSE 47–78; RESP 10–23; TEMP 36.4–37.1; O2SAT 90–93
[2020-02-11 06:52] LABS: INR 1.03 (0.8-1.2)
[2020-02-11 06:55] LABS: D Dimer 0.46 ug/mIFEU (0-0.59)
[2020-02-11 07:21] LABS: Alanine Aminotransferase 74 U/L (0-41); Albumin Level 3.3 g/dL (3.5-5.2); Alkaline Phosphatase 84 IU/L (40-130); Anion Gap 16.7 (5-19); Aspartate Amino Transferase 103 U/L (0-40); Blood Urea Nitrogen 24 mg/dL (8-23); C Reactive Protein 21.8 mg/L (0.0-4.9); Calcium 8.3 mg/dL (8.5-10.5); Carbon Dioxide 22 mmol/L (22-29); Chloride 101 mmol/L (98-107); Globulin 2.8 g/dL (1.3-4.6); Glucose 197 mg/dL (65-115); Magnesium 2.1 mg/dL (1.7-2.3); Osmolality Calculated 292 mOsm/kg (285-295); Phosphorus 3.4 mg/dL (2.5-4.5); Potassium 3.7 mmol/L (3.5-5.1); Sodium 136 mmol/L (136-145); Total Bilirubin 0.2 mg/dL (0.15-1.2); Total Protein 6.1 g/dL (6.6-8.7)
[2020-02-11 07:35] LABS: Glucose Point of Care 248 mg/dL (70-110)
[2020-02-11] MEDS: dexamethasone 4 mg/mL INJ 6 MG IVP (07:42)
[2020-02-11 08:28] LABS: NT Pro B Type Natriuretic Pept 360 pg/mL (0-450); Procalcitonin 0.17 ng/mL (0-0.5)
[2020-02-11 08:44] LABS: Creatine Phosphokinase 743 U/L (39-308)
[2020-02-11] MEDS: hydroCHLOROthiazide 25 mg Tablet PO (09:04)
[2020-02-11] MEDS: zinc gluconate 50 mg Tablet PO (09:04)
[2020-02-11] MEDS: ascorbic acid 500 mg Tablet 1000 MG PO ×2 (09:04→17:09)
[2020-02-11] MEDS: tamsulosin 0.4 mg Capsule PO (09:04)
[2020-02-11 11:38] LABS: Glucose Point of Care 242 mg/dL (70-110)
--- NOTE | 2020-02-11 11:54 | PM.PN ---
Subjective Subjective: Interval history: This morning patient is laying in bed, afebrile overnight, currently on room air, he still complaining of pleuritic pain with coughing, some shortness of breath with exertion, no nausea, no no vomiting Vitals/I&O/Wt Last Vital Signs Temp 98.2 F 02/11/20 08:00 Pulse 65 02/11/20 08:53 Resp 20 H 02/11/20 08:53 BP 123/66 02/11/20 08:00 Pulse Ox 92 02/11/20 08:53 02/10/20 02/11/20 02/11/20 22:59 06:59 14:59 Intake Total 600 / 1950 100 / 2050 500 / 500 Output Total 600 / 1000 300 / 1300 400 / 400 Balance 0 / 950 -200 / 750 100 / 100 Weight last 48 hrs Weight 99.7 kg Weight 100.414 kg Physical Exam Const: COMMON NORMALS: no acute distress and patient oriented x3 HENMT: COMMON NORMALS: normocephalic HEAD & SCALP: normocephalic Neck/C-Spine: COMMON NORMALS: no JVD Resp: COMMON NORMALS: normal respiratory effort, No retractions and No use of accessory muscles AUSCULTATION: crackles and wheezes Cardio: COMMON NORMALS: no JVD, regular rate, regular rhythm, S1 normal heart sound present and S2 normal heart sound present RATE: regular rate RHYTHM: regular rhythm HEART SOUNDS: S1 normal heart sound present and S2 normal heart sound present GI: COMMON NORMALS: Normal to inspection, nondistended, normoactive bowel sounds present, Soft to palpation, non-tender, No hepatosplenomegaly present, no masses and no bruits PALPATION: Yes Soft to palpation and Yes No hepatosplenomegaly present Extremity: COMMON NORMALS: capillary refill normal, no clubbing, cyanosis or edema, no calf tenderness and no pedal edema Neuro: COMMON NORMALS: patient oriented x3 Psych: COMMON NORMALS: mental status grossly normal Data : 02/10/20 03:46 02/11/20 04:45 Micro: Microbiology 02/11/20 09:25 Blood Culture - Preliminary Blood SPECIMEN COLLECTED 02/11/20 09:22 Blood Culture - Preliminary Blood SPECIMEN COLLECTED 02/09/20 21:20 Blood Culture - Preliminary Blood 02/09/20 21:20 Blood Culture - Preliminary Blood NEGATIVE TO DATE 02/10/20 14:12 Bacterial Antigens - Final Urine,Voided 02/10/20 10:00 Gram Stain - Final Sputum - Expectorated Sputum A&P Assessment and plan (1) Acute respiratory failure with hypoxia: -Risk factors include COPD, obesity, type 2 diabetes -CT angiogram of the chest shows diffuse groundglass opacities, some lobar consolidation in bilateral lungs, there is also bullae present in areas of concern as above -Concerning for COVID-19 pneumonia, viral pneumonitis, secondary bacterial infection Plan: -Admit to viral ICU -Patient is a full code -Lovenox for DVT prophylaxis, hold off on therapeutic dose as D-dimer minimally elevated -Protonix for GI prophylaxis -Advair, Spiriva, albuterol -Vitamin C, zinc -Sputum cultures, blood cultures, urine bacterial antigens -Rocephin and azithromycin -Decadron -Remdesivir Plan for today, continues to complain of shortness of breath with exertion, is on room air, chest exam does show some crackles at the bases, will give a touch of Lasix, moved to general medical floors, hopefully discharge in the next 24 hours Status: Acute (2) COPD (chronic obstructive pulmonary disease): Status: Acute (3) COVID-19 virus infection: Status: Acute (4) HTN (hypertension): Status: Acute (5) DM type 2 (diabetes mellitus, type 2): Low-dose sliding scale, monitor blood sugars carefully as he is on Decadron Status: Acute (6) Secondary bacterial pneumonia: Status: Acute (7) Hypokalemia: Give 40 mEq of Klor-Con Status: Acute (8) Acute kidney injury superimposed on chronic kidney disease: -Creatinine 1.5, baseline 1.3, give 500 cc bolus Status: Acute Additional A&P Information Plan for today is to get up out of bed, continue ambulation, aggressive pulmonary toilet Attestations Medical Necessity Statement*: Patient requires hospitalization for acute respiratory failure secondary to COVID-19 Coding Level of Care Code 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
[2020-02-11] MEDS: FUROsemide 10 mg/mL SDV 2mL 20 MG IVP (12:50)
[2020-02-11] MEDS: potassium chloride ER 10 mEq Tablet 20 MEQ PO (12:50)
--- NOTE | 2020-02-11 13:30 | PC.NURSE ---
Pt transferred via w/c by traffic warehouse supervisor to med-surg COVID unit. Pt stable at time of transfer. No c/o voiced. Proper precautions taken by nursing staff to ensure limited exposure.
[2020-02-11] MEDS: enoxaparin 40 mg/0.4 mL Syringe SUBCUT (15:57)
[2020-02-11 17:06] LABS: Glucose Point of Care 263 mg/dL (70-110)
[2020-02-11] MEDS: cefTRIAXone 1,000 MG in sodium chloride 0.9% (plus) 50 ML 100 MG IV (17:10)
[2020-02-11 21:20] LABS: Glucose Point of Care 273 mg/dL (70-110)
[2020-02-11] MEDS: azithromycin 500 MG in sodium chloride 0.9% 250 ML 250 MG IV (21:31)
[2020-02-12] VITALS (10 sets, daily range): BP systolic 119–148; BP diastolic 65–82; PULSE 46–74; RESP 17–24; TEMP 36.3–37; O2SAT 92–99
--- NOTE | 2020-02-12 03:45 | ECG_ITS ---
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 Measurements Intervals [place] Rate: 42 P: 67 [place]: 211 QRS: 65 QRSD: 93 T: 50 QT: 503 QTc: 421 Interpretive Statements SINUS BRADYCARDIA WITH FIRST DEGREE AV BLOCK No previous ECG available for comparison Electronically Signed On 02-13-2020 19:19:24 CHARTER BOAT CAPTAIN by Moe Kline M.D. [id number]
[2020-02-12 06:43] LABS: Hematocrit 32.4 % (42.0-52.0); Lymphocytes # 0.7 10^3/uL (0.8-4.8); Lymphocytes % 9.6 %; Mean Corpuscular HGB Conc 30.9 g/dL (30.0-36.0); Mean Corpuscular Hemoglobin 22.8 pg (28.0-34.0); Mean Corpuscular Volume 73.8 fL (80-94); Mean Platelet Volume 10.6 fL (7.4-10.4); Monocytes # 0.5 10^3/uL (0.2-0.9); Monocytes % 7.3 %; Neutrophils # 5.82 10^3/uL (1.8-7.7); Neutrophils % 82.3 %; Nucleated Red Blood Cells % 0 %; Platelet Count 225 10^3/cmm (130-400); Red Blood Count 4.39 10^6/uL (4.1-5.3); Red Cell Distribution Width 18.7 % (12.1-15.1); White Blood Count 7.1 10^3/uL (4.0-10.0)
--- NOTE | 2020-02-12 07:00 | XRR_ITS ---
PROCEDURE INFORMATION: Exam: XR Chest, 1 View Exam date and time: 02/12/2020 12:00 AM Age: 74 years old Clinical indication: Shortness of breath; Patient HX: Covid; Additional info: SOB TECHNIQUE: Imaging protocol: XR of the chest Views: 1 view. COMPARISON: CR XR chest 1V portable [id number] 02/10/2020 7:13 AM FINDINGS: Lungs: There are bilateral hazy interstitial pulmonary infiltrates. These are most prominent along the periphery of the left mid lung zone and in the right base. There has been no significant change since previous study. These infiltrates are consistent with viral pneumonia. Pleural space: Unremarkable. No pleural effusion. No pneumothorax. Heart/Mediastinum: Unremarkable. No cardiomegaly. Bones/joints: Unremarkable. XR/XR chest 1V portable [id number] IMPRESSION: No significant change in bilateral interstitial pulmonary infiltrates.
[2020-02-12 07:10] LABS: Alanine Aminotransferase 69 U/L (0-41); Albumin Level 3.2 g/dL (3.5-5.2); Alkaline Phosphatase 78 IU/L (40-130); Anion Gap 13.5 (5-19); Aspartate Amino Transferase 76 U/L (0-40); Blood Urea Nitrogen 29 mg/dL (8-23); C Reactive Protein 6.8 mg/L (0.0-4.9); Calcium 8.2 mg/dL (8.5-10.5); Carbon Dioxide 25 mmol/L (22-29); Chloride 103 mmol/L (98-107); Globulin 2.4 g/dL (1.3-4.6); Glucose 213 mg/dL (65-115); Magnesium 2.1 mg/dL (1.7-2.3); Osmolality Calculated 296 mOsm/kg (285-295); Phosphorus 3.1 mg/dL (2.5-4.5); Potassium 4.5 mmol/L (3.5-5.1); Sodium 137 mmol/L (136-145); Total Bilirubin 0.2 mg/dL (0.15-1.2); Total Protein 5.6 g/dL (6.6-8.7)
--- NOTE | 2020-02-12 07:34 | NUR.SHIFT ---
During the night while the patient was sleeping, he would express on the monitor bradycardia as low as the 3X's. An EKG was performed. The machine expressed a stage 1 AV block. A copy was sent to Dr. Hogue. Patient rhythm would return to normal while the patient is awake. Patient was asymptomatic. Patient had zero complaints and mainly slept through the [facility].
[2020-02-12] MEDS: dexamethasone 4 mg/mL INJ 6 MG IVP (07:45)
[2020-02-12 08:09] LABS: NT Pro B Type Natriuretic Pept 493 pg/mL (0-450); Procalcitonin 0.11 ng/mL (0-0.5)
[2020-02-12 08:27] LABS: Creatine Phosphokinase 479 U/L (39-308)
[2020-02-12 08:38] LABS: Glucose Point of Care 210 mg/dL (70-110)
[2020-02-12 08:40] LABS: INR 1.12 (0.8-1.2)
--- NOTE | 2020-02-12 09:18 | PC.SOCIAL ---
*IMM* Patient was gave IM Verbally due to having COVID. He stated that he understood. A copy will be placed in the chart.
[2020-02-12] MEDS: tamsulosin 0.4 mg Capsule PO (09:48)
[2020-02-12] MEDS: ascorbic acid 500 mg Tablet 1000 MG PO ×2 (09:48→17:47)
[2020-02-12] MEDS: zinc gluconate 50 mg Tablet PO (09:49)
--- NOTE | 2020-02-12 10:44 | ECG_ITS ---
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 Measurements Intervals [place] Rate: 47 P: 61 [place]: 191 QRS: 47 QRSD: 97 T: 35 QT: 476 QTc: 425 Interpretive Statements SINUS BRADYCARDIA Compared to ECG 02/12/2020 03:28:20 First degree AV block no longer present Electronically Signed On 02-13-2020 18:44:20 DAIRY FEED MIXING OPERATOR by Moe Kline M.D. [id number]
[2020-02-12] MEDS: hydroCHLOROthiazide 25 mg Tablet PO (10:55)
[2020-02-12 11:37] LABS: Glucose Point of Care 259 mg/dL (70-110)
--- NOTE | 2020-02-12 11:43 | USCV_ITS ---
Richmond Davis Age: 74 Gender: M : 1945 Exam Date: 02/12/2020 15:42 Ordering Phys: Van Macario MD Technologist: Noemy Nicole [place] [facility] [place]: short of breath BP: / HR: 51 Rhythm: Sinus Technical Quality: Adequate MEASUREMENTS (Male / Female) Normal Values 2D ECHO LV Diastolic Diameter PLAX 5.3 cm 4.2 - 5.9 / 3.9 - 5.3 cm LV Systolic Diameter PLAX 2.4 cm IVS Diastolic Thickness 0.9 cm 0.6 - 1.0 / 0.6 - 0.9 cm IVS Systolic Thickness 2.0 cm LVPW Diastolic Thickness 0.8 cm 0.6 - 1.0 / 0.6 - 0.9 cm LVPW Systolic Thickness 1.6 cm LV Ejection Fraction 2D Teich 85.0 % LV Ejection Fraction MOD 2C 73.1 % LV Ejection Fraction 2C AL 73.7 % LA Diameter 3.9 cm LA Width 4.3 cm LA Height 6.2 cm RA Width 4.9 cm RA Height 4.5 cm Aorta at Sinotubular Diameter 3.3 cm M-MODE LV Diastolic Diameter MM 6.1 cm 4.2 - 5.9 / 3.9 - 5.3 cm LV Systolic Diameter MM 3.9 cm LV Ejection Fraction MM Teich 64.1 % IVS Diastolic Thickness MM 1.1 cm 0.6 - 1.0 / 0.6 - 0.9 cm IVS Systolic Thickness MM 2.0 cm LVPW Diastolic Thickness MM 1.1 cm 0.6 - 1.0 / 0.6 - 0.9 cm LVPW Systolic Thickness MM 1.6 cm Aortic Annulus Diameter 3.3 cm LA Ao Ratio MM 1.3 MV E Point Septal Separation 0.2 cm DOPPLER AV Peak Velocity 241.7 cm/s LVOT Peak Velocity 156.0 cm/s MV Peak Velocity 151.0 cm/s MV Area PHT 2.3 cm squared Mitral E to A Ratio 0.9 MV E' Velocity 62.0 cm/s Mitral E to MV E' Ratio 18.1 Mitral E to LV E' Lateral Ratio 19.3 Mitral E to LV E' Septal Ratio 17.1 TR Peak Velocity 177.8 cm/s TR Peak Gradient 12.6 mmHg Right Atrial Pressure 3.0 mmHg Pulmonary Artery Systolic Pressu 15.6 mmHg PV Peak Velocity 132.7 cm/s RV Acceleration Time 0.1 s RV Ejection Time 0.3 s RV AcT/ET 0.3 FINDINGS Left Ventricle Normal left ventricular size, systolic function and wall thickness, with no regional wall motion abnormalities. LVEF is 60 to 65%. Normal left ventricular wall thickness. Grade 1 diastolic dysfunction is present. Right Ventricle The right ventricle is normal in size and function. Right Atrium The right atrium is normal in size. Left Atrium The left atrium is enlarged Mitral Valve Structurally normal mitral valve without significant stenosis or prolapse. There is mild mitral regurgitation. Aortic Valve Aortic valve thickening is noted. There is mild aortic stenosis with a mean gradient across the valve of 11.4 mmHg and peak velocity of 2.47 m/s. There is mild aortic regurgitation. Tricuspid Valve Structurally normal tricuspid valve without significant stenosis or regurgitation. Insufficient TR jet to calculate RVSP. Pulmonic Valve Structurally normal pulmonic valve without significant stenosis. There is no pulmonic regurgitation. Pericardium Normal pericardium without effusion. Aorta Ascending aorta measures 3.5 cm. CONCLUSIONS LV systolic function is normal with EF of 60 to 65%. Grade 1 diastolic dysfunction is present. Left atrium is enlarged Mild aortic stenosis is present with mean gradient across the valve of 11.4 mmHg and peak velocity of 2.47 m/s. There is mild aortic regurgitation and mild mitral regurgitation noted. Mildly dilated ascending aorta. No comparison studies are available Moe Kline MD (Electronically Signed) Final Date: 13 February 2020 12:55 S
--- NOTE | 2020-02-12 14:50 | PM.PN ---
Subjective Subjective: Interval history: This morning patient was examined, he is having episodes sinus bradycardia, is asymptomatic, still on 1 to 2 L nasal cannula, no chest pain, no palpitations, no shortness of breath, no lightheadedness, no dizziness, no lightheadedness or dizziness when getting up out of bed, Vitals/I&O/Wt Last Vital Signs Temp 97.3 F L 02/12/20 11:40 Pulse 55 L 02/12/20 11:40 Resp 18 02/12/20 11:40 BP 147/76 02/12/20 11:40 Pulse Ox 95 02/12/20 11:40 02/11/20 02/12/20 02/12/20 22:59 06:59 14:59 Intake Total 240 / 1190 240 / 240 Output Total 1130 / 1880 600 / 2480 Balance -890 / -690 -600 / -1290 240 / 240 Physical Exam Const: COMMON NORMALS: no acute distress and patient oriented x3 HENMT: COMMON NORMALS: normocephalic HEAD & SCALP: normocephalic Neck/C-Spine: COMMON NORMALS: no JVD Resp: COMMON NORMALS: normal respiratory effort, No retractions, No use of accessory muscles and clear to auscultation bilaterally AUSCULTATION: clear to auscultation bilaterally Cardio: COMMON NORMALS: no JVD, regular rhythm, S1 normal heart sound present and S2 normal heart sound present RATE: bradycardic RHYTHM: regular rhythm HEART SOUNDS: S1 normal heart sound present and S2 normal heart sound present GI: COMMON NORMALS: Normal to inspection, nondistended, normoactive bowel sounds present, Soft to palpation, non-tender, No hepatosplenomegaly present, no masses and no bruits PALPATION: Yes Soft to palpation and Yes No hepatosplenomegaly present Extremity: COMMON NORMALS: capillary refill normal, no clubbing, cyanosis or edema, no calf tenderness and no pedal edema Neuro: COMMON NORMALS: patient oriented x3 Psych: COMMON NORMALS: mental status grossly normal Data : 02/12/20 06:10 02/12/20 06:10 Micro: Microbiology 02/10/20 10:00 Gram Stain - Final Sputum - Expectorated Sputum Sputum Culture - Preliminary Staphylococcus aureus 02/11/20 09:25 Blood Culture - Preliminary Blood NEGATIVE TO DATE 02/11/20 09:22 Blood Culture - Preliminary Blood NEGATIVE TO DATE 02/09/20 21:20 Blood Culture - Preliminary Blood Coagulase negativ staphylococc A&P Assessment and plan (1) Acute respiratory failure with hypoxia: -Risk factors include COPD, obesity, type 2 diabetes -CT angiogram of the chest shows diffuse groundglass opacities, some lobar consolidation in bilateral lungs, there is also bullae present in areas of concern as above -Concerning for COVID-19 pneumonia, viral pneumonitis, secondary bacterial infection Plan: -Moved to general medical floors -Patient is a full code -Switch to Eliquis 2.5 mg twice daily, for hypercoagulability prophylaxis -Protonix for GI prophylaxis -Advair, Spiriva, albuterol -Vitamin C, zinc -Sputum cultures, blood cultures, urine bacterial antigens -Rocephin and azithromycin -Decadron -Remdesivir Plan for today, currently requiring 1 to 2 L nasal cannula, continue incentive spirometer, flutter valve, hopefully wean off oxygen, hopefully discharge the next 0.4 hours Status: Acute (2) COPD (chronic obstructive pulmonary disease): Status: Acute (3) COVID-19 virus infection: Status: Acute (4) HTN (hypertension): Status: Acute (5) DM type 2 (diabetes mellitus, type 2): Low-dose sliding scale, monitor blood sugars carefully as he is on Decadron Status: Acute (6) Secondary bacterial pneumonia: Status: Acute (7) Hypokalemia: Give 40 mEq of Klor-Con Status: Acute (8) Acute kidney injury superimposed on chronic kidney disease: -Creatinine 1.5, baseline 1.3, give 500 cc bolus Status: Acute (9) Sinus bradycardia: -Sinus bradycardia likely secondary to hypoxia, COVID-19 -EKG shows first-degree AV block, sinus bradycardia -Echocardiogram ordered -Currently asymptomatic -Plan is to ambulate tomorrow morning, to see if he becomes symptomatic -Continue telemetry monitoring, no need for Holter monitoring -Follow-up with cardiology as outpatient -Hold all edmundo blocking agents -I spoke to Dr. Kline with above plan, he agrees Status: Acute Additional A&P Information Plan for today is to get up out of bed, continue ambulation, aggressive pulmonary toilet Attestations Medical Necessity Statement*: She requires hospitalization for acute respiratory failure with hypoxia secondary COVID-19, sinus bradycardia Coding Level of Care Code Acute Wire Products Inspector for [facility] Fwd Diagnoses Acute respiratory failure with hypoxia J96.01 COPD (chronic obstructive pulmonary disease) J44.9 COVID-19 virus infection U07.1 HTN (hypertension) I10 DM type 2 (diabetes mellitus, type 2) E11.9 Secondary bacterial pneumonia J15.9 Hypokalemia E87.6 Acute kidney injury superimposed on chronic kidney disease N17.9; N18.9 Sinus bradycardia R00.1
[2020-02-12] MEDS: calcium carbonate 500 mg Chew Tablet PO (16:49)
[2020-02-12 17:15] LABS: Glucose Point of Care 264 mg/dL (70-110)
[2020-02-12] MEDS: apixaban 5 mg Tablet 2.5 MG PO (17:46)
[2020-02-12] MEDS: cefTRIAXone 1,000 MG in sodium chloride 0.9% (plus) 50 ML 100 MG IV (17:47)
[2020-02-12 19:16] LABS: Lactate (Lactic Acid level) 4.7 mmol/L (0.5-2.2)
[2020-02-12] MEDS: azithromycin 500 MG in sodium chloride 0.9% 250 ML 250 MG IV (22:07)
[2020-02-12] MEDS: acetaminophen 325 mg Tablet 650 MG PO (22:12)
[2020-02-13] VITALS (8 sets, daily range): BP systolic 118–145; BP diastolic 65–78; PULSE 46–68; RESP 16–20; TEMP 36.5–37.1; O2SAT 91–95
--- NOTE | 2020-02-13 06:00 | ECG_ITS ---
[facility] Test Date: 2020-02-13 Pat Name: Richmond Davis Department: Room: 272 Gender: Male Service Inspector: : 1945 Requested By: Van Macario Order Number: [id number] Romario MD: Moe Kline M.D. Measurements Intervals [place] Rate: 50 P: 60 TX: 218 QRS: 50 QRSD: 94 T: 30 QT: 478 QTc: 440 Interpretive Statements SINUS BRADYCARDIA WITH FIRST DEGREE AV BLOCK Compared to ECG 02/12/2020 10:47:35 First degree AV block now present Electronically Signed On 02-13-2020 19:10:23 GUEST RELATIONS REPRESENTATIVE by Moe Kline M.D. [id number]
--- NOTE | 2020-02-13 07:00 | XRR_ITS ---
PROCEDURE INFORMATION: Exam: XR Chest, 1 View Exam date and time: 02/13/2020 7:25 AM Age: 74 years old Clinical indication: Shortness of breath; Additional info: SOB TECHNIQUE: Imaging protocol: XR of the chest Views: 1 view. COMPARISON: CR (CHEST, ) 02/12/2020 7:51 AM FINDINGS: Lungs: Again noted are interstitial pulmonary infiltrates especially in the left lung. These have not significantly changed since previous study. This is consistent with viral pneumonia. Pleural space: Unremarkable. No pleural effusion. No pneumothorax. Heart/Mediastinum: Unremarkable. No cardiomegaly. Bones/joints: Unremarkable. XR/XR chest 1V portable [id number] IMPRESSION: Stable interstitial pulmonary infiltrates.
[2020-02-13 07:20] LABS: Basophils % 0.1 %; Hematocrit 35.5 % (42.0-52.0); Hemoglobin 11.1 g/dL (11.7-16.6); Lymphocytes # 0.7 10^3/uL (0.8-4.8); Lymphocytes % 9.1 %; Mean Corpuscular HGB Conc 31.3 g/dL (30.0-36.0); Mean Corpuscular Hemoglobin 23.2 pg (28.0-34.0); Mean Corpuscular Volume 74.3 fL (80-94); Mean Platelet Volume 10.4 fL (7.4-10.4); Monocytes # 0.5 10^3/uL (0.2-0.9); Monocytes % 6.2 %; Neutrophils # 6.61 10^3/uL (1.8-7.7); Neutrophils % 83.6 %; Nucleated Red Blood Cells % 0 %; Platelet Count 245 10^3/cmm (130-400); Red Blood Count 4.78 10^6/uL (4.1-5.3); Red Cell Distribution Width 18.9 % (12.1-15.1); White Blood Count 7.9 10^3/uL (4.0-10.0)
[2020-02-13 07:41] LABS: INR 1.14 (0.8-1.2)
[2020-02-13 07:44] LABS: D Dimer 0.65 ug/mIFEU (0-0.59)
[2020-02-13 07:55] LABS: Alanine Aminotransferase 84 U/L (0-41); Albumin Level 3.2 g/dL (3.5-5.2); Alkaline Phosphatase 82 IU/L (40-130); Anion Gap 14.5 (5-19); Aspartate Amino Transferase 74 U/L (0-40); Blood Urea Nitrogen 30 mg/dL (8-23); C Reactive Protein 6.2 mg/L (0.0-4.9); Calcium 8.5 mg/dL (8.5-10.5); Carbon Dioxide 24 mmol/L (22-29); Chloride 101 mmol/L (98-107); Glucose 203 mg/dL (65-115); Magnesium 2.1 mg/dL (1.7-2.3); Osmolality Calculated 294 mOsm/kg (285-295); Potassium 3.5 mmol/L (3.5-5.1); Sodium 136 mmol/L (136-145); Total Bilirubin 0.2 mg/dL (0.15-1.2); Total Protein 6.2 g/dL (6.6-8.7)
[2020-02-13 08:07] LABS: NT Pro B Type Natriuretic Pept 467 pg/mL (0-450); Procalcitonin 0.09 ng/mL (0-0.5)
[2020-02-13] MEDS: ascorbic acid 500 mg Tablet 1000 MG PO ×2 (08:42→17:26)
[2020-02-13] MEDS: tamsulosin 0.4 mg Capsule PO (08:42)
[2020-02-13] MEDS: hydroCHLOROthiazide 25 mg Tablet PO (08:42)
[2020-02-13] MEDS: zinc gluconate 50 mg Tablet PO (08:42)
[2020-02-13] MEDS: dexamethasone 4 mg/mL INJ 6 MG IVP (08:43)
[2020-02-13] MEDS: apixaban 5 mg Tablet 2.5 MG PO ×2 (08:43→17:26)
[2020-02-13 10:14] LABS: Lactate (Lactic Acid level) 3.8 mmol/L (0.5-2.2)
--- NOTE | 2020-02-13 11:58 | PC.SOCIAL ---
IMM Update Pg. 2 of IMM Updated and reviewed with patient over the phone who verbalized understanding.
[2020-02-13 12:06] LABS: Glucose Point of Care 254 mg/dL (70-110)
[2020-02-13] MEDS: nicotine 21 mg Patch 1 PATCH TRANSDERMA (12:27)
--- NOTE | 2020-02-13 13:03 | PC.NURSE ---
Spoke to patient's Zoey who will update Srikanth for me.
--- NOTE | 2020-02-13 14:27 | P.PN_ITS ---
Subjective Subjective: Interval history: This morning patient was examined, he is on 2 L, really wants to go home, but still a bit short of breath, still having a cough Vitals/I&O/Wt Last Vital Signs Temp 97.9 F 02/13/20 12:00 Pulse 61 02/13/20 12:00 Resp 16 02/13/20 12:00 BP 134/76 02/13/20 12:00 Pulse Ox 95 02/13/20 12:00 02/12/20 02/13/20 02/13/20 22:59 06:59 14:59 Intake Total 340 / 820 250 / 1070 440 / 440 Output Total 250 / 250 400 / 650 Balance 90 / 570 -150 / 420 440 / 440 Physical Exam Const: COMMON NORMALS: no acute distress and patient oriented x3 HENMT: COMMON NORMALS: normocephalic HEAD & SCALP: normocephalic Neck/C-Spine: COMMON NORMALS: no JVD Resp: COMMON NORMALS: normal respiratory effort, No retractions and No use of accessory muscles AUSCULTATION: diminished lung sounds Cardio: COMMON NORMALS: no JVD, regular rate, regular rhythm, S1 normal heart sound present and S2 normal heart sound present RATE: regular rate RHYTHM: regular rhythm HEART SOUNDS: S1 normal heart sound present and S2 normal heart sound present GI: COMMON NORMALS: Normal to inspection, nondistended, normoactive bowel sounds present, Soft to palpation, non-tender, No hepatosplenomegaly present, no masses and no bruits PALPATION: Yes Soft to palpation and Yes No hepatosplenomegaly present Extremity: COMMON NORMALS: capillary refill normal, no clubbing, cyanosis or edema, no calf tenderness and no pedal edema Neuro: COMMON NORMALS: patient oriented x3 Psych: COMMON NORMALS: mental status grossly normal Data : 02/13/20 06:50 02/13/20 06:50 Micro: Microbiology 02/13/20 08:45 MRSA Culture - Final Nose 02/10/20 10:00 Gram Stain - Final Sputum - Expectorated Sputum Sputum Culture - Final Staphylococcus aureus 02/11/20 09:25 Blood Culture - Preliminary Blood NEGATIVE TO DATE 02/11/20 09:22 Blood Culture - Preliminary Blood NEGATIVE TO DATE A&P Assessment and plan (1) Acute respiratory failure with hypoxia: -Risk factors include COPD, obesity, type 2 diabetes -CT angiogram of the chest shows diffuse groundglass opacities, some lobar consolidation in bilateral lungs, there is also bullae present in areas of concern as above -Concerning for COVID-19 pneumonia, viral pneumonitis, secondary bacterial infe ction Plan: -Moved to general medical floors -Patient is a full code -Switch to Eliquis 2.5 mg twice daily, for hypercoagulability prophylaxis -Protonix for GI prophylaxis -Advair, Spiriva, albuterol -Vitamin C, zinc -Sputum cultures, blood cultures, urine bacterial antigens -Rocephin and azithromycin -Decadron -Remdesivir day 4 of 5 Plan for today, currently requiring 1 to 2 L nasal cannula, continue incentive spirometer, flutter valve, hopefully wean off oxygen, will get last dose of remdesivir tomorrow, if doing well, likely discharge tomorrow Status: Acute (2) COPD (chronic obstructive pulmonary disease): Status: Acute (3) COVID-19 virus infection: Status: Acute (4) HTN (hypertension): Status: Acute (5) DM type 2 (diabetes mellitus, type 2): Low-dose sliding scale, monitor blood sugars carefully as he is on Decadron Status: Acute (6) Secondary bacterial pneumonia: Status: Acute (7) Hypokalemia: Potassium 3.5 today Status: Acute (8) Acute kidney injury superimposed on chronic kidney disease: -Creatinine 1.5, baseline 1.3, give 500 cc bolus Status: Acute (9) Sinus bradycardia: -Sinus bradycardia likely secondary to hypoxia, COVID-19 -EKG shows first-degree AV block, sinus bradycardia -Echocardiogram shows EF of 60 to 65%, grade 1 diastolic dysfunction, left atrium is enlarged, mild aortic stenosis -Currently asymptomatic -Plan is to ambulate tomorrow morning, to see if he becomes symptomatic -Continue telemetry monitoring, no need for Holter monitoring -Follow-up with cardiology as outpatient -Hold all edmundo blocking agents -I spoke to Dr. Kline with above plan, he agrees Status: Acute (10) Aortic stenosis: Status: Acute (11) Transaminitis: Status: Acute Additional A&P Information Plan for today is to get up out of bed, continue ambulation, aggressive pulmonary toilet Attestations Medical Necessity Statement*: Patient requires hospitalization for acute respiratory failure hypoxia secondary COVID-19, sinus bradycardia Coding Level of Care Code Acute Automation And Controls Instructor for g Fwd Diagnoses Acute respiratory failure with hypoxia J96.01 COPD (chronic obstructive pulmonary disease) J44.9 COVID-19 virus infection U07.1 HTN (hypertension) I10 DM type 2 (diabetes mellitus, type 2) E11.9 Secondary bacterial pneumonia J15.9 Hypokalemia E87.6 Acute kidney injury superimposed on chronic kidney disease N17.9; N18.9 Sinus bradycardia R00.1 Aortic stenosis I35.0 Transaminitis R74.01
[2020-02-13 16:44] LABS: Glucose Point of Care 280 mg/dL (70-110)
[2020-02-13] MEDS: vancomycin 1,500 MG/300 ML PIGGYBACK 200 MG IV (18:50)
[2020-02-13 21:14] LABS: Glucose Point of Care 261 mg/dL (70-110)
[2020-02-14] VITALS (7 sets, daily range): BP systolic 117–143; BP diastolic 63–69; PULSE 48–58; RESP 16–22; TEMP 36.4–36.6; O2SAT 91–95
[2020-02-14] MEDS: acetaminophen 325 mg Tablet 650 MG PO (05:27)
--- NOTE | 2020-02-14 06:00 | P.CONIM_ITS ---
Providers/Reason For Consult Consulting Physican/Specialty*: Domitila Law MD Reason for Consult*: Streptococcus viridans bacteremia Attending Physician: Jose Alejandro Brice MD Primary Care Provider: Sean Rivera MD History of Present Illness History of Present Illness Richmond Davis is a 74 year old male with PMH diabetes mellitus, hypertension, COPD admitted since 02/08 for COVID 19 pneumonia after presenting with fever, fatigue, malaise, shortness of breath, and hypoxic respiratory failure. Patient has completed a 5 day treatment course with remdesivir and steroids and significantly imrpoved since admission. ID has been consulted for appropriate selection and duration of abx as blood cx have been reported positive for CoNs and strep viridans during admission course. Patient states feeling improved since admission. Denies any c/o chets pain, dyspnea,palpitations. Fever has been resolved since 02/09. He remains hemodynamically stable. Hospital course has been complicated by development of BANDAR. Review of Systems General: Reports: 10 or more systems reviewed and unremarkable except in HPI and below Const: Denies: fever(s), chills or body aches Eyes: Denies: change in vision, blurry vision or photophobia ENMT: Reports: hoarseness; Denies: throat pain, enlarged tonsils, odynophagia or nasal congestion Card: Denies: chest pain, palpitations, irregular heart rhythm, edema, swelling of feet/ankles, lightheadedness, pre-syncope, dyspnea on exertion or orthopnea Resp: Denies: dyspnea, productive cough, non-productive cough, wheezing, stridor, pain on inspiration, change in phlegm color, hemoptysis or chest congestion GI: Denies: abdominal pain, nausea, vomiting, hematemesis, coffee ground emesis, dysphagia, heartburn, diarrhea, constipation, GI cramping, change in stool character, hematochezia or melena : Denies: flank pain, dysuria, urinary frequency, urinary urgency, urinary hesitancy or hematuria Musc: Denies: neck pain, back pain, extremity pain, joint swelling, joint warmth or deformity Neuro: Denies: headache(s), numbness in extremities, weakness in extremities, sensory changes, difficulty walking, frequent falls, dizziness, vertigo, behavioral changes, Slurred speech present or seizure-like activity Psych: Denies: anxiety, depression, suicidal ideation or homicidal ideation Endo: Denies: polyuria, polydipsia, tired all the time, cold intolerance or hot flashes Ken/Lymph: Denies: easy bruising or easy bleeding Meds/Allergies Home Medications and Allergies Home Medications Medication Instructions Recorded Confirmed Last Taken Type tamsulosin 0.4 mg capsule 0.4 mg PO DAILY 01/06/20 02/15/20 02/15/20 History hydrochlorothiazide 25 mg PO DAILY 02/09/20 02/15/20 02/15/20 History apixaban [Eliquis] 2.5 mg PO BID 14 Days #14 tab 02/14/20 02/15/20 02/15/20 Rx ascorbic acid (vitamin C) [Vitamin 500 mg PO BID 14 Days #28 tab 02/14/20 02/15/20 02/08/20 Rx C] benzonatate 100 mg PO TID PRN #15 cap 02/14/20 02/15/20 02/15/20 Rx ceftriaxone 1 g IV DAILY #11 ea 02/14/20 02/15/20 02/14/20 Rx fluticasone propion-salmeterol 1 puff INHALATION BID.RESPIRATORY 02/14/20 02/15/20 02/15/20 Rx [Advair Diskus] 14 Days #28 ea metformin 1,000 mg PO BID #0 tab 02/14/20 02/15/20 02/15/20 Rx methylprednisolone [Medrol ([place])] See Rx Instructions .ROUTE 02/14/20 02/15/20 02/15/20 Rx .COMPLEX #21 ea tiotropium bromide [Spiriva with 18 mcg INHALATION 02/14/20 02/15/20 02/15/20 Rx HandiHaler] DAILY.RESPIRATORY 14 Days #14 inh zinc gluconate 50 mg PO DAILY 14 Days #14 tab 02/14/20 02/15/20 02/15/20 Rx Allergies Allergy/AdvReac Type Severity Reaction Status Date / Time No Known Allergies Allergy Unverified 02/02/20 14:07 PFSH Acute PFSH: Medical History COPD (chronic obstructive pulmonary disease) DM type 2 (diabetes mellitus, type 2) Hypertension Lung nodule Streptococcal bacteremia Surgical History H/O hernia repair History of left knee replacement History of throat surgery Family History Father CAD (coronary artery disease) Mother Alzheimer's dementia Social History Smoking and tobacco status: former smoker Alcohol intake: never Vitals/I&O/Wt Last Vital Signs Temp 97.8 F 02/14/20 16:08 Pulse 58 L 02/14/20 16:08 Resp 16 02/14/20 16:08 BP 143/69 02/14/20 16:08 Pulse Ox 91 02/14/20 16:08 Physical Exam Narrative: EXAM NARRATIVE: GEN: Awake, alert no acute distress HEENT: NC/AT, no gross mouth sores or mucositis CVS: S1S2 N RS: CTA B/L Abd: Soft, nt/nd , bs+ SALES FLOOR TEAM LEADER: no focal neuro deficits Data Micro: Micro: Microbiology 02/09/20 21:20 Blood Culture - Fi nal Blood Staphylococcus Auricularis 02/09/20 21:20 Blood Culture - Fi nal Blood Staphylococcus haemolyticus 02/11/20 09:25 Blood Culture - Fi nal Blood NO GROWTH AFTER 5 DAYS 02/11/20 09:22 Blood Culture - Fi nal Blood NO GROWTH AFTER 5 DAYS Imaging^: CT Chest: I personally reviewed and interpreted this imaging study as follows: My impression: bilateral, ill-defined, peripheral ground-glass opacities in both lungs, more so on the left, compatible with COVID-19 pneumonia Echo: My impression: CONCLUSIONS LV systolic function is normal with EF of 60 to 65%. Grade 1 diastolic dysfunction is present. Left atrium is enlarged Mild aortic stenosis is present with mean gradient across the valve of 11.4 mmHg and peak velocity of 2.47 m/s. There is mild aortic regurgitation and mild mitral regurgitation noted. Mildly dilated ascending aorta. No comparison studies are available Other Data: Other data: Culture data : 02/01: 1 bottles positive for ConS 02/08: Strep viridans 02/08: 03/27: staph hemolyticus 02/10: blood cx negative to date 02/09: sputum cx : MSSA A&P Assessment and plan (1) Streptococcal bacteremia: Sterp viridans isolated on 03/27 blood cx along with ConS vardiable species from day of admission and again on02/08. Overall do suspect contamination, however given ongoing respiratory tract infection, cannot rule out true bacteremia with Strep viridans. Unlikely endocarditis given quick cleranace of bacteremia, negative TTE and alternate explanation for source. Recommend total 14 day course of ceftriaxone 1g iv q24h for the bacteremia. This will additionally cover for possibility of post viral staph pneumonia with MSSA as recovered on sputum cx Thank you for this consult Status: Acute (2) COVID-19 virus infection: Treated with remdisivir/dexamthesone and supportive rx, clinically improving Status: Acute (3) HTN (hypertension): Status: Acute Qualifiers: Hypertension type: unspecified Qualified Code(s): I10 - Essential (primary) hypertension (4) DM type 2 (diabetes mellitus, type 2): Status: Acute Qualifiers: Diabetes mellitus jail insulin use: without long filler cigar roller machine use (5) Secondary bacterial pneumonia: Status: Acute Coding Level of Care Code Acute Program Production Specialist for [facility] Diagnoses Streptococcal bacteremia R78.81; B95.5 COVID-19 virus infection U07.1 HTN (hypertension) I10 Hypertension type: unspecified DM type 2 (diabetes mellitus, type 2) E11.9 Diabetes mellitus long filler cigar roller machine insulin use: without jail use Secondary bacterial pneumonia J15.9
--- NOTE | 2020-02-14 06:00 | ECG_ITS ---
[facility] Test Date: 2020-02-14 Pat Name: Richmond Davis Department: Room: 272 Gender: Male Supervisor Cell Room: jim RIOS: 1945 Requested By: Van Macario Order Number: [id number] Romario MD: Moe Kline M.D. Measurements Intervals [place] Rate: 44 P: 76 MS: 219 QRS: 65 QRSD: 94 T: 51 QT: 502 QTc: 432 Interpretive Statements SINUS BRADYCARDIA WITH FIRST DEGREE AV BLOCK Compared to ECG 02/13/2020 03:13:20 No significant changes Electronically Signed On 02-14-2020 16:43:45 ROR ENGINEER by Moe Kline M.D. [id number]
[2020-02-14 06:07] LABS: INR 1.14 (0.8-1.2)
[2020-02-14 06:09] LABS: Alanine Aminotransferase 64 U/L (0-41); Albumin Level 3.1 g/dL (3.5-5.2); Alkaline Phosphatase 80 IU/L (40-130); Anion Gap 14.6 (5-19); Aspartate Amino Transferase 39 U/L (0-40); Blood Urea Nitrogen 26 mg/dL (8-23); C Reactive Protein 8.6 mg/L (0.0-4.9); Calcium 8.4 mg/dL (8.5-10.5); Carbon Dioxide 24 mmol/L (22-29); Chloride 101 mmol/L (98-107); Globulin 2.8 g/dL (1.3-4.6); Glucose 190 mg/dL (65-115); Magnesium 2.1 mg/dL (1.7-2.3); Osmolality Calculated 292 mOsm/kg (285-295); Phosphorus 3.2 mg/dL (2.5-4.5); Potassium 3.6 mmol/L (3.5-5.1); Sodium 136 mmol/L (136-145); Total Bilirubin 0.3 mg/dL (0.15-1.2); Total Protein 5.9 g/dL (6.6-8.7)
[2020-02-14 06:10] LABS: D Dimer 0.56 ug/mIFEU (0-0.59)
[2020-02-14] MEDS: vancomycin 1,500 MG/300 ML PIGGYBACK 200 MG IV (06:28)
[2020-02-14 06:40] LABS: Glucose Point of Care 196 mg/dL (70-110)
[2020-02-14 06:42] LABS: Basophils % 0.1 %; Hematocrit 34.1 % (42.0-52.0); Hemoglobin 10.5 g/dL (11.7-16.6); Lymphocytes # 0.8 10^3/uL (0.8-4.8); Lymphocytes % 9.6 %; Mean Corpuscular HGB Conc 30.8 g/dL (30.0-36.0); Mean Corpuscular Hemoglobin 22.8 pg (28.0-34.0); Mean Corpuscular Volume 74.1 fL (80-94); Monocytes # 0.6 10^3/uL (0.2-0.9); Monocytes % 6.6 %; Neutrophils # 6.86 10^3/uL (1.8-7.7); Neutrophils % 82.1 %; Nucleated Red Blood Cells % 0 %; Platelet Count 232 10^3/cmm (130-400); Red Cell Distribution Width 18.6 % (12.1-15.1); White Blood Count 8.4 10^3/uL (4.0-10.0)
--- NOTE | 2020-02-14 07:00 | XR_ITS ---
WS: [id number] XR chest 1V portable [id number] REASON FOR EXAM: sob FINDINGS: The chest is essentially unchanged compared to previous examination of 02/13/2020. The heart and mediastinum are within normal limits. There are interstitial and alveolar infiltrative changes in both lung bases and in the central and pe ripheral mid left lung. No new findings. XR/XR chest 1V portable [id number] IMPRESSION: Stable abnormal chest as above.
[2020-02-14 07:26] LABS: NT Pro B Type Natriuretic Pept 398 pg/mL (0-450); Procalcitonin 0.08 ng/mL (0-0.5)
[2020-02-14] MEDS: apixaban 5 mg Tablet 2.5 MG PO (08:06)
[2020-02-14] MEDS: zinc gluconate 50 mg Tablet PO (08:06)
[2020-02-14] MEDS: nicotine 21 mg Patch 1 PATCH TRANSDERMA (08:08)
[2020-02-14] MEDS: tamsulosin 0.4 mg Capsule PO (08:08)
[2020-02-14] MEDS: ascorbic acid 500 mg Tablet 1000 MG PO (08:08)
[2020-02-14] MEDS: dexamethasone 4 mg/mL INJ 6 MG IVP (08:54)
[2020-02-14] MEDS: hydroCHLOROthiazide 25 mg Tablet PO (10:20)
--- NOTE | 2020-02-14 10:56 | P.DS_ITS ---
Discharge Providers Date of Admission: 02/09/20 13:42 Date of Discharge: February 14, 2020 Attending Provider at Admission: Van Macario MD Attending Provider at Discharge: Jose Alejandro Brice MD Consults: ID: Dr. Law Primary Care Provider: Sean Rivera MD Diagnoses at Discharge Discharge Diagnosis (1) Acute respiratory failure with hypoxia: Status: Acute (2) COPD (chronic obstructive pulmonary disease): Status: Acute (3) COVID-19 virus infection: Status: Acute (4) HTN (hypertension): Status: Acute (5) DM type 2 (diabetes mellitus, type 2): Status: Acute (6) Secondary bacterial pneumonia: Status: Acute (7) Hypokalemia: Status: Acute (8) Acute kidney injury superimposed on chronic kidney disease: Status: Acute (9) Sinus bradycardia: Status: Acute (10) Aortic stenosis: Status: Acute (11) Transaminitis: Status: Acute Reason for Visit Reason for Visit: SOB, FATIGUE, FEVER Hospital Course Hospital Course Richmond Davis is a 74 year old male with a past medical history of noninsulin- dependent type 2 diabetes mellitus, hypertension, COPD who presents to [facility] due to complaints of fatigue, malaise, shortness of breath, desaturations. Patient has tested positive for COVID-19 on February 01 since then he started having fevers, chills, shortness of breath with exertion. Fever going as high as 102 Fahrenheit. He presented to the PCPs office as his oxygen levels dropping below 90% on home oxygen monitoring so he was sent to the hospital for further management from the primary care's office. Patient was admitted to the hospital to the viral ICU and started on antiviral treatment with remdesivir and steroids. He responded well to the treatment and was gradually transitioned over to the medical general floor. Patient's hospital stay was complicated with acute kidney injury on admission which is most likely secondary to dehydration and was treated with IV fluids. His kidney functions came back to baseline by the day of discharge. His blood cultures from admission were also positive for 1 out of 4 bottles positive for coag negative staph. His blood culture were repeated and came back positive again for strep viridans. Transthoracic echocardiogram was done which was negative for any infective endocarditis though patient could not undergo ESTEFANÍA because of current COVID-19 positive status. ID was consulted. Patient is been discharged on IV ceftriaxone to finish a 2-week course and has been advised to follow-up with ID clinic as an outpatient for repeat blood cultures and for possible ESTEFANÍA as an outpatient with cardiology depending on the culture results. Patient has been discharged home on vitamin C, zinc, inhaler treatment with Advair and Spiriva, Eliquis for 2 weeks, ceftriaxone for 11 more days with advised to follow-up with his primary care provider within next 1 to 3 days. He is been discharged in hemodynamically stable condition. Home oxygen evaluation has been done prior to discharge. Physical Exam Const: COMMON NORMALS: no acute distress and patient oriented x3 GENERAL APPEARANCE: cooperative and comfortable HENMT: COMMON NORMALS: normocephalic HEAD & SCALP: normocephalic Eye: COMMON NORMALS: Equal, round and reactive pupils present and EOMs intact bilaterally GENERAL EYE: appearance normal, both eyes and all related structures PUPIL: Yes Equal, round and reactive pupils present Neck/C-Spine: COMMON NORMALS: full ROM, no lymphadenopathy, no JVD and Thyroid normal THYROID: Thyroid normal Lymph: LYMPHATIC: no lymphadenopathy noted Resp: COMMON NORMALS: normal respiratory effort, No retractions and No use of accessory muscles AUSCULTATION: crackles, wheezes and diminished lung sounds Cardio: COMMON NORMALS: no JVD, regular rate, regular rhythm, S1 normal heart sound present, S2 normal heart sound present, No gallops present (Cardio), No clicks present (Cardio) and No murmurs present (Cardio) RATE: regular rate and bradycardic RHYTHM: regular rhythm HEART SOUNDS: S1 normal heart sound present and S2 normal heart sound present GI: COMMON NORMALS: Normal to inspection, nondistended, normoactive bowel sounds present, Soft to palpation, non-tender, No hepatosplenomegaly present, no masses and no bruits PALPATION: Yes Soft to palpation and Yes No hepatosplenomegaly present Extremity: COMMON NORMALS: normal to inspection, full ROM, capillary refill normal, no clubbing, cyanosis or edema, no calf tenderness and no pedal edema Neuro: COMMON NORMALS: patient oriented x3, CN's II-XII intact bilaterally, moves all extremities and no focal motor deficits Psych: COMMON NORMALS: mental status grossly normal, Normal thought process present and cooperative THOUGHT PROCESS: Normal thought process present Discharge Data Data Completed and Pending: Completed Studies During Hospitalization Category Date Time Status CT angio chest PE protcl [id number] Stat Cat Scan 02/09/20 11:27 Completed XR chest 1V jairo ble [id number] Routine Exams 02/10/20 07:00 Completed XR chest 1V jairo ble [id number] Routine Exams 02/12/20 07:00 Completed XR chest 1V jairo ble [id number] Routine Exams 02/13/20 07:00 Completed XR chest 1V jairo ble [id number] Routine Exams 02/14/20 07:00 Completed XR chest 1V jairo ble [id number] Stat Exams 02/09/20 10:36 Completed CV echo complete* [id number] Routine Ultrasound 02/12/20 11:43 Completed Pending at discharge Category Date Time Status Blood Culture [facility] 02/09/20 21:20 Results Blood Culture Sta t Lab 02/11/20 09:25 Results C Reactive Protei n AM LABS Lab 02/15/20 04:00 Ordered Comprehensive Met abolic Panel AM LA BS Lab 02/15/20 04:00 Ordered D Dimer AM LABS Lab 02/15/20 04:00 Ordered Magnesium AM LABS Lab 02/15/20 04:00 Ordered NT Pro B Type Mere riuretic Pept QAM Lab 02/15/20 06:00 Ordered Phosphorus AM LAB S Lab 02/15/20 04:00 Ordered Procalcitonin AM LABS Lab 02/15/20 04:00 Ordered Prothrombin Time INR AM LABS Lab 02/15/20 04:00 Ordered Vancomycin Trough Routine Lab 02/14/20 18:00 Ordered Labs from last 24 hours 02/14/20 02/14/20 02/14/20 06:12 05:20 05:20 WBC RBC Hgb Hct MCV MCH MCHC RDW Plt Count MPV Neut % (Auto) Lymph % (Auto) [place] % (Auto) Eos % (Auto) Baso % (Auto) Neut # (Auto) Lymph # (Auto) [place] # (Auto) Eos # (Auto) Baso # (Auto) Nucleated RBC % (a uto) Nucleated RBCs # PT 14.90 INR 1.14 D-Dimer 0.56 Sodium Potassium Chloride Carbon Dioxide Anion Gap BUN Creatinine GFR Calculation Glucose POC Glucose 196 Calculated Osmolal ity Calcium Phosphorus Magnesium Total Bilirubin AST ALT Alkaline Phosphata se C-Reactive Protein NT-Pro-B Natriuret Pep 398 Total Protein Albumin Globulin Procalcitonin 0.08 02/14/20 02/14/20 02/13/20 05:20 05:20 21:07 WBC 8.4 RBC 4.60 Hgb 10.5 L Hct 34.1 L MCV 74.1 L MCH 22.8 L MCHC 30.8 RDW 18.6 H Plt Count 232 MPV 11.0 H Neut % (Auto) 82.1 Lymph % (Auto) 9.6 [place] % (Auto) 6.6 Eos % (Auto) 0.0 Baso % (Auto) 0.1 Neut # (Auto) 6.86 Lymph # (Auto) 0.8 [place] # (Auto) 0.6 Eos # (Auto) 0.0 Baso # (Auto) 0.0 Nucleated RBC % (a uto) 0 Nucleated RBCs # 0.0 PT INR D-Dimer Sodium 136 Potassium 3.6 Chloride 101 Carbon Dioxide 24 Anion Gap 14.6 BUN 26 H Creatinine 0.9 GFR Calculation Not Reportable Glucose 190 H POC Glucose 261 Calculated Osmolal ity 292 Calcium 8.4 L Phosphorus 3.2 Magnesium 2.1 Total Bilirubin 0.3 AST 39 ALT 64 H Alkaline Phosphata se 80 C-Reactive Protein 8.6 H NT-Pro-B Natriuret Pep Total Protein 5.9 L Albumin 3.1 L Globulin 2.8 Procalcitonin 02/13/20 02/13/20 16:30 11:57 WBC RBC Hgb Hct MCV MCH MCHC RDW Plt Count MPV Neut % (Auto) Lymph % (Auto) [place] % (Auto) Eos % (Auto) Baso % (Auto) Neut # (Auto) Lymph # (Auto) [place] # (Auto) Eos # (Auto) Baso # (Auto) Nucleated RBC % (a uto) Nucleated RBCs # PT INR D-Dimer Sodium Potassium Chloride Carbon Dioxide Anion Gap BUN Creatinine GFR Calculation Glucose POC Glucose 280 254 Calculated Osmolal ity Calcium Phosphorus Magnesium Total Bilirubin AST ALT Alkaline Phosphata se C-Reactive Protein NT-Pro-B Natriuret Pep Total Protein Albumin Globulin Procalcitonin Vitals: Last Vital Signs Temp 97.8 F 02/14/20 07:28 Pulse 49 L 02/14/20 09:07 Resp 22 H 02/14/20 09:07 BP 132/68 02/14/20 07:28 Pulse Ox 92 02/14/20 09:07 Discharge Plan Discharge Patient Disposition: Home Condition: Stable Prescriptions: New Vitamin C 500 mg Tablet 500 mg PO BID 14 Days Qty: 28 RF: 0 benzonatate 100 mg Capsule 100 mg PO TID PRN (Reason: Cough) Qty: 15 RF: 0 Eliquis 5 mg Tablet 2.5 mg PO BID 14 Days Qty: 14 RF: 0 ceftriaxone 1 gram recon soln 1 g IV DAILY Qty: 11 RF: 0 Advair Diskus 250-50 mcg/dose Blister With Device 1 puff inhalation BID.RESPIRATORY 14 Days Qty: 28 RF: 0 zinc gluconate 50 mg Tablet 50 mg PO DAILY 14 Days Qty: 14 RF: 0 Spiriva with HandiHaler 18 mcg Capsule, W/Inhalation Device 18 mcg inhalation DAILY.RESPIRATORY 14 Days Qty: 14 RF: 0 Medrol (Mukesh) 4 mg tablets,dose pack See Rx Instructions .ROUTE .COMPLEX Qty: 21 RF: 0 Continued tamsulosin 0.4 mg capsule 0.4 mg PO DAILY RF: 0 hydrochlorothiazide 25 mg Tablet 25 mg PO DAILY RF: 0 Changed metformin 500 mg tablet 1,000 mg PO BID Qty: 0 RF: 0 Discharge Orders: Discharge Order (Routine); Ordered 02/14/20 Ordered By: Jose Alejandro Brice Other Ambulatory Orders: DME: Oxygen (Order) Location: None Selected Ordered By: Jose Alejandro Brice Referrals: [facility] Outpatient Surgery Department [Other] - 02/15/20 11:00 am (You have chosen to come into the hospital to have your IV medication given to use each day. You will need to come to the main/surgical services entrance, starting tomorrow at 11:00 AM. If you have any questions, you may call the phone number provided.) [facility] [Outside] Domitila Law MD [Hospitalist] - 03/07/20 9:00 am (Follow up with Dr Law on March 07 at 09:00 am) Sean Rivera MD [Primary Care Provider] - 02/24/20 1:00 pm (Follow up with Dr Rivera February 23 at 1:00pm ) Discharge Diet: Regular Discharge Activity: Resume usual activity Patient Instructions: Benzonatate (By mouth), Methylprednisolone (By mouth), Fluticasone/Salmeterol (By breathing), Tiotropium (By breathing), Apixaban (By mouth), Viral Pneumonia (GEN), Pneumonia Stoplight Activity Restrictions/Additional Instructions: Please follow-up with your primary care provider within next 1 to 3 days. Please follow-up with ID clinic in next 2 weeks for possibly repeat blood cultures. You will be on IV ceftriaxone for next 11 days to finish a 14-day course for strep bacteremia. Needs take vitamin C and zinc for next 2 weeks. Please use Spiriva and Advair which are the nebulizers for next 2 weeks. You will be on Medrol pack. Please continue to maintain social distancing with mask for next 2 weeks. Try to avoid going in public spaces. 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
[2020-02-14] MEDS: cefTRIAXone 1,000 MG in sodium chloride 0.9% (plus) 50 ML 100 MG IV (11:16)
[2020-02-14 11:31] LABS: Glucose Point of Care 227 mg/dL (70-110)
--- NOTE | 2020-02-14 16:06 | PC.NURSE ---
discharge instructions given and education on medications gone over with pt. pt had no questions or concerns, this nurse explained how to call back incase any questions arise once he gets home. pt taken down by wheelchair by kaleb VELASQUEZ.
--- NOTE | 2020-02-15 09:08 | PC.SOCIAL ---
Spoke with the patient on the phone about the discharge information they received spoke about signs and symptoms to watch for such as; blue lips or face, fever of 104 or higher, trouble breathing or catching breath, chest pain lasting longer than 5 minute, confusion or trouble waking up. We also spoke about ways to improve the immune system, these included; eating and drinking well, eating fruits and vegetables, lean meat, low fat dairy products, keeping up with immunizations such as flu/pneumonia/shingles shots, going to all appointments and follow ups, lessening and stress. We also spoke about ways to stop or prevent the spread of the COVID 19. These included; social distancing at all times, washing hands longer than 20 seconds with a good lather, sanitizing surfaces in home and in vehicle, masking up when possible and washing any cloth masks after use and allow them to dry completely before next use, sneezing or coughing into arm, restricting company or going out in public. We spoke a little about the benefits of plasma donation. The asked that I send info. When asked if she had any questions, she did state that she had a question about a mediation that was PRN, I explained that it stated that it was for cough on the discharge paperwork. She also asked why her was not set up with the infusions at home, I explained to her that according to the social service notes, her is the one who asked for the outpatient infusion He did not want to get a PICC line at that time. She had no further questions. I did inform her of his upcoming appointments. She stated that she was aware of them and asked for a location for Dr. Ani reyes. I explained where that was, she stated that she knew where it was.
== END 2020-02-14 15:30 | disposition home or self-care (01) | DRG 177 ==
LOC: ER 13:44 → ICU 13:53 → MEDSURG 02-11 13:40
PROVIDERS: Admitting Provider Family Medicine; Emergency Provider Family Medicine; PCP Family Medicine; Visit Provider Student in an Organized Health Care Education/Training Program
DX: U07.1 COVID-19 (principal); J12.89 Other viral pneumonia; J15.9 Unspecified bacterial pneumonia; J96.01 Acute respiratory failure with hypoxia; N17.9 Acute kidney failure, unspecified; J44.0 Chronic obstructive pulmonary disease with (acute) lower respiratory infection; R00.1 Bradycardia, unspecified; E87.6 Hypokalemia; I35.0 Nonrheumatic aortic (valve) stenosis; E11.22 Type 2 diabetes mellitus with diabetic chronic kidney disease; I12.9 Hypertensive chronic kidney disease with stage 1 through stage 4 chronic kidney disease, or unspecified chronic kidney disease; N18.9 Chronic kidney disease, unspecified; Z79.84 Long term (current) use of oral hypoglycemic drugs; Z87.891 Personal history of nicotine dependence; Z96.652 Presence of left artificial knee joint
CPT/HCPCS: 12345; 36415; 36416; 36600; 71045; 71275; 80048; 80053; 80061; 82550; 82803; 82962; 83036; 83605; 83735; 83880; 84100; 84145; 84443; 85025; 85378; 85610; 86140; 86403; 87040; 87070; 87077; 87186; 87205; 87641; 93005; 93306; 94640; 94664; 96372; 96375; 97110; 97161; 97165; 99282; J0456; J0696; J1100; J1650; J1815; J1940; J3370; J7040; J7050; Q9967

== ENCOUNTER 2020-02-21 10:36 | Outpatient (RCR) | payer MEDICARE, OTHER, SELFPAY ==
[2020-02-15 11:29] VITALS: BP 143/78; PULSE 56; RESP 18; TEMP 36.1; O2SAT 92
[2020-02-15] MEDS: cefTRIAXone 1,000 MG in sodium chloride 0.9% (plus) 50 ML 100 MG IV (12:07)
[2020-02-16] MEDS: cefTRIAXone 1,000 MG in sodium chloride 0.9% (plus) 50 ML 100 MG IV (11:35)
[2020-02-16 11:40] VITALS: BP 132/77; PULSE 55; RESP 18; TEMP 36.4; O2SAT 91
[2020-02-17] MEDS: cefTRIAXone 1,000 MG in sodium chloride 0.9% (plus) 50 ML 100 MG IV (11:00)
[2020-02-17 11:43] VITALS: BP 150/74; PULSE 62; RESP 18; TEMP 36.1; O2SAT 95
[2020-02-18 11:04] VITALS: BP 151/76; PULSE 56; RESP 20; TEMP 36.2; O2SAT 97
[2020-02-19] MEDS: cefTRIAXone 1,000 MG in sodium chloride 0.9% (plus) 50 ML 100 MG IV (11:11)
[2020-02-19 11:17] VITALS: BP 150/92; PULSE 57; RESP 22; TEMP 36.2; O2SAT 95
[2020-02-20] MEDS: cefTRIAXone 1,000 MG in sodium chloride 0.9% (plus) 50 ML 100 MG IV (09:43)
[2020-02-20 09:50] VITALS: BP 158/88; PULSE 75; RESP 18; TEMP 36.2; O2SAT 93
[2020-02-21 10:45] VITALS: BP 141/99; PULSE 96; RESP 18; TEMP 36.1; O2SAT 95
[2020-02-21] MEDS: cefTRIAXone 1,000 MG in sodium chloride 0.9% (plus) 50 ML 100 MG IV (10:46)
== END 2020-02-21 23:59 | disposition home or self-care (01) ==
LOC: OPS 10:36
PROVIDERS: PCP Family Medicine; Visit Provider Student in an Organized Health Care Education/Training Program
DX: J18.9 Pneumonia, unspecified organism (principal)
CPT/HCPCS: 96365; J0696

== ENCOUNTER 2020-02-25 10:48 | Outpatient (RCR) | payer MEDICARE, OTHER, SELFPAY ==
[2020-02-22] MEDS: cefTRIAXone 1,000 MG in sodium chloride 0.9% (plus) 50 ML 100 MG IV (11:05)
[2020-02-22 11:09] VITALS: BP 140/79; PULSE 90; RESP 18; TEMP 36; O2SAT 96; BMI 29.8
[2020-02-23 10:53] VITALS: BP 135/72; PULSE 72; RESP 18; TEMP 36.6; O2SAT 98
[2020-02-23] MEDS: cefTRIAXone 1,000 MG in sodium chloride 0.9% (plus) 50 ML 100 MG IV (11:08)
[2020-02-24] MEDS: cefTRIAXone 1,000 MG in sodium chloride 0.9% (plus) 50 ML 100 MG IV (10:47)
[2020-02-24 10:57] VITALS: BP 136/80; PULSE 82; RESP 18; TEMP 36.6; O2SAT 96
[2020-02-25] MEDS: cefTRIAXone 1,000 MG in sodium chloride 0.9% (plus) 50 ML 100 MG IV (11:00)
[2020-02-25 11:24] VITALS: BP 134/70; PULSE 67; RESP 18; TEMP 36.4; O2SAT 97
== END 2020-03-23 23:59 | disposition home or self-care (01) ==
LOC: OPS 10:48
PROVIDERS: PCP Family Medicine; Visit Provider Student in an Organized Health Care Education/Training Program
DX: J18.9 Pneumonia, unspecified organism (principal); R09.02 Hypoxemia
CPT/HCPCS: 96365; J0696

== ENCOUNTER 2020-03-06 12:00 | Outpatient (CLI) | payer MEDICARE, OTHER, SELFPAY | END 2020-03-06 12:01 | disposition home or self-care (01) | LOC: SLEEP 03-07 11:17 | PROVIDERS: PCP Family Medicine; Visit Provider Family Medicine | DX: J18.9 Pneumonia, unspecified organism (principal); R09.02 Hypoxemia; R06.83 Snoring; R53.83 Other fatigue; G47.33 Obstructive sleep apnea (adult) (pediatric) | CPT/HCPCS: G0399 ==

== ENCOUNTER → 2020-07-09 10:59 | Outpatient (BNVA) | payer MEDICARE, OTHER, SELFPAY | PROVIDERS: PCP Family Medicine; Visit Provider Nurse Practitioner Family | DX: N39.0 Urinary tract infection, site not specified (principal) | CPT/HCPCS: 81000; 87086 ==

== ENCOUNTER 2020-07-10 11:48 | Emergency (ER) | payer MEDICARE, OTHER, SELFPAY ==
[2020-07-10 12:31] VITALS: BP 152/81; PULSE 83; RESP 20; TEMP 36.8; O2SAT 95; BMI 30.5
--- NOTE | 2020-07-10 12:49 | W.ED.MALEGU ---
HPI - Male Genitourinary General: Chief complaint: Urogenital-Male Stated complaint: TROUBLE URINATING Time Seen by Provider: 07/10/20 12:43 History of Present Illness: HPI Narrative: 74 yo male presents with difficulty urinating, suprapubic pain. pt states started having urinary symptoms yesterday. went to urgent care, found to have UTI. started on cipro. pt has hx of BPH, on tamusolin, states has had inabilty to urinate since yesterday afternoon, no presents with significant suprapubic pain. Associated symptoms: Reports dysuria; Deny nausea or vomiting Review of Systems Const: Reports: fever(s) Eyes: Denies: change in vision ENMT: Denies: throat pain Card: Denies: chest pain or palpitations Resp: Denies: dyspnea or productive cough GI: Reports: abdominal pain; Denies: nausea or vomiting : Reports: difficulty urinating, dysuria and urinary dribbling Skin/Breast: Denies: rash Neuro: Denies: headache(s) PFSH ED PFSH: Medical History COPD (chronic obstructive pulmonary disease) DM type 2 (diabetes mellitus, type 2) Hypertension Lung nodule Streptococcal bacteremia Surgical History H/O hernia repair History of left knee replacement History of throat surgery Family History Father CAD (coronary artery disease) Mother Alzheimer's dementia Social History Smoking and tobacco status: former smoker Alcohol intake: never Physical Exam Const: COMMON NORMALS: patient oriented x3 and alert GENERAL APPEARANCE: other (uncomfortable ) ORIENTATION/CONSCIOUSNESS: Yes awake Resp: COMMON NORMALS: normal respiratory effort and clear to auscultation bilaterally EFFORT & INSPECTION: Yes able to speak in complete sentences AUSCULTATION: clear to auscultation bilaterally Cardio: COMMON NORMALS: regular rate and regular rhythm RATE: regular rate RHYTHM: regular rhythm GI: COMMON NORMALS: Soft to palpation PALPATION: Yes Soft to palpation and Yes Tenderness to palpation present (GI) Details: other (suprapubic ) : COMMON NORMALS: Yes no CVA tenderness BLADDER/KIDNEY EXAM: Yes no CVA tenderness PENIS: normal penis and uncircumcised Back/Pelvis: COMMON NORMALS: no CVA tenderness Extremity: COMMON NORMALS: normal to inspection Neuro: COMMON NORMALS: patient oriented x3 and moves all extremities SENSORIUM/ORIENTATION: Yes alert Psych: COMMON NORMALS: mental status grossly normal Skin: COMMON NORMALS: no rashes or lesions noted GENERAL SKIN EXAM: no rashes or lesions noted Course Vital Signs: Vital signs: Vital Signs Temperature 98.3 F 07/10/20 12:31 Pulse Rate 95 07/10/20 13:59 Respiratory Rate 16 07/10/20 13:59 Blood Pressure 136/68 07/10/20 13:59 Pulse Oximetry 96 07/10/20 13:59 MDM - Male MDM Narrative: Medical decision making narrative: pt with over 500cc out with trinh cath. pt feeling significant better. will leave trinh cath in place, pt should follow up with pcp/urologist in 2-3 days for cath removal. pt with known uti, started on cipro yesterday. he should cont prescription as directed. Lab Data: Attestation: I reviewed the patient's lab results. Labs: Lab Results 07/10/20 07/10/20 Range/Units 13:10 13:10 WBC 13.9 H (4.0-10.0) 10^3/ uL RBC 4.94 (4.1-5.3) 10^6/u L Hgb 10.9 L (11.7-16.6) g/dL Hct 36.4 L (42.0-52.0) % MCV 73.7 L (80-94) fL MCH 22.1 L (28.0-34.0) pg MCHC 29.9 L (30.0-36.0) g/dL RDW 18.6 H (12.1-15.1) % Plt Count 250 (130-400) 10^3/c mm MPV 10.6 H (7.4-10.4) fL Neut % (Auto) 85.1 % Lymph % (Auto) 5.9 % [place] % (Auto) 7.2 % Eos % (Auto) 0.6 % Baso % (Auto) 0.6 % Neut # (Auto) 11.82 H (1.8-7.7) 10^3/u L Lymph # (Auto) 0.8 (0.8-4.8) 10^3/u L [place] # (Auto) 1.0 H (0.2-0.9) 10^3/u L Eos # (Auto) 0.1 (0.0-0.8) 10^3/u L Baso # (Auto) 0.1 (0.0-0.1) 10^3/u L Nucleated RBC % (a uto) 0 % Nucleated RBCs # 0.0 /100WBC Sodium 136 (136-145) mmol/L Potassium 3.5 (3.5-5.1) mmol/L Chloride 97 L (98-107) mmol/L Carbon Dioxide 25 (22-29) mmol/L Anion Gap 17.5 (5-19) BUN 14 (8-23) mg/dL Creatinine 1.5 H (0.7-1.2) mg/dL GFR Calculation Not Reportable Glucose 117 H (65-115) mg/dL Calculated Osmolal ity 284 L (285-295) mOsm/k g Calcium 9.0 (8.5-10.5) mg/dL Discharge Plan Discharge Clinical Impression: Acute retention of urine Urinary tract infection Qualifiers: Urinary tract infection type: acute cystitis Hematuria presence: with hematuria Qualified Code(s): N30.01 - Acute cystitis with hematuria Condition: Stable Prescriptions: No Action tamsulosin 0.4 mg capsule 0.4 mg PO DAILY@2100 RF: 0 hydrochlorothiazide 25 mg Tablet 25 mg PO DAILY@0700 RF: 0 metformin 500 mg tablet 1,000 mg PO BID@0700,2100 RF: 0 Cipro 500 mg tablet 500 mg PO BID@0700,2100 RF: 0 Referrals: Sean Rivera MD [Primary Care Provider] - Discharge Diet: Usual diet Patient Instructions: Trinh Catheter Care, Urinary Retention in Men (ED), Urinary Tract Infection in Men (ED), Urinary Leg Bag (GEN) Activity Restrictions/Additional Instructions: Continue current prescribed antibiotics. 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
[2020-07-10 13:49] LABS: Basophils # 0.1 10^3/uL (0.0-0.1); Basophils % 0.6 %; Eosinophils # 0.1 10^3/uL (0.0-0.8); Eosinophils % 0.6 %; Hematocrit 36.4 % (42.0-52.0); Hemoglobin 10.9 g/dL (11.7-16.6); Lymphocytes # 0.8 10^3/uL (0.8-4.8); Lymphocytes % 5.9 %; Mean Corpuscular HGB Conc 29.9 g/dL (30.0-36.0); Mean Corpuscular Hemoglobin 22.1 pg (28.0-34.0); Mean Corpuscular Volume 73.7 fL (80-94); Mean Platelet Volume 10.6 fL (7.4-10.4); Monocytes % 7.2 %; Neutrophils # 11.82 10^3/uL (1.8-7.7); Neutrophils % 85.1 %; Nucleated Red Blood Cells % 0 %; Platelet Count 250 10^3/cmm (130-400); Red Blood Count 4.94 10^6/uL (4.1-5.3); Red Cell Distribution Width 18.6 % (12.1-15.1); White Blood Count 13.9 10^3/uL (4.0-10.0)
[2020-07-10 13:59] VITALS: BP 136/68; PULSE 95; RESP 16; O2SAT 96
[2020-07-10 14:23] LABS: Anion Gap 17.5 (5-19); Blood Urea Nitrogen 14 mg/dL (8-23); Carbon Dioxide 25 mmol/L (22-29); Chloride 97 mmol/L (98-107); Glucose 117 mg/dL (65-115); Osmolality Calculated 284 mOsm/kg (285-295); Potassium 3.5 mmol/L (3.5-5.1); Sodium 136 mmol/L (136-145)
== END 2020-07-10 15:25 ==
PROVIDERS: Emergency Provider Student in an Organized Health Care Education/Training Program; PCP Family Medicine
DX: N30.01 Acute cystitis with hematuria (principal); R33.9 Retention of urine, unspecified; J44.9 Chronic obstructive pulmonary disease, unspecified; E11.9 Type 2 diabetes mellitus without complications; I10 Essential (primary) hypertension; Z87.891 Personal history of nicotine dependence
CPT/HCPCS: 51702; 80048; 85025; 99283

== ENCOUNTER 2021-01-01 10:46 | Outpatient (CLI) | payer MEDICARE, OTHER, SELFPAY ==
[2021-01-01 11:28] LABS: Blood Urea Nitrogen 14 mg/dL (8-23)
--- NOTE | 2021-01-01 11:30 | CT_ITS ---
WS: [id number] CT CHEST TECHNIQUE: Contrast enhanced CT of the chest with coronal and sagittal reformatted images. CLINICAL INFORMATION: lung nodule COMPARISON: CT chest February 09, 2020 December 21, 2019 DLP: 1082.[address] scans at [facility] use at least one of these dose optimization techniques: automated e xposure control; mA and/or kV adjustment per patient size (includes targeted exams where dose is matc hed to clinical indication); or iterative reconstruction. FINDINGS: Previously described groundglass infiltrates have resolved compared to February 09, 2020. No acute pu lmonary infiltrates today. Persistent calcified subcentimeter pulmonary nodules the largest along the left hilum measuring 6 mm unchanged. Additional right upper lobe 4 mm pulmonary nodule is slightly m ore prominent compared to previous. Vague hazy 4 mm groundglass nodule right upper lobe is unchanged. Moderate chronic emphysematous changes. Normal caliber thoracic aorta. Proximal main pulmonary arteri es are normal. Mild aortic and coronary calcification. No mediastinal or hilar lymphadenopathy. Small esophageal hiatal hernia.Stable partially visualized increased attenuation left renal lesion is nons pecific measuring 3.3 x 2.2 CM. Recommend further evaluation with ultrasound. Adrenal glands are normal. Diffuse fatty infiltration of the liver. Fatty atrophy of the pancreas. Mi ld thoracic kyphosis. No axillary lymphadenopathy. CT/CT chest w con* [id number] IMPRESSION: 1. Noncalcified subcentimeter pulmonary nodules largest in the left hilum darion uring 6 mm unchanged.Right upper lobe 4 mm nodule appears slightly more promine nt today previously measuring 3 mm. Recommend 12 month follow-up. 2. Previous described ground glass infiltrates have resolved. 3. No mediastinal or hilar lymphadenopathy. 4. Stable partially visualized increased attenuation left renal lesion is nons pecific measuring 3.3 x 2.2 CM. Recommend further evaluation with ultrasound. 5. Small esophageal hiatal hernia.
[2021-01-01] MEDS: iohexol 300 mg/mL 100 mL Btl IV (11:34)
== END 2021-01-01 10:47 | disposition home or self-care (01) ==
PROVIDERS: PCP Family Medicine; Visit Provider Thoracic Surgery (Cardiothoracic Vascular Surgery)
DX: K44.9 Diaphragmatic hernia without obstruction or gangrene (principal); R91.8 Other nonspecific abnormal finding of lung field
CPT/HCPCS: 71260; 82565; 84520; Q9967

== ENCOUNTER 2022-02-04 15:07 | Outpatient (CLI) | payer MEDICARE, OTHER, SELFPAY ==
[2022-02-04] MEDS: iohexol 350 mg/mL 500 mL Btl (per mL) IV (15:34)
--- NOTE | 2022-02-04 15:45 | CT_ITS ---
WS: [id number] CT CHEST WITH INTRAVENOUS CONTRAST HISTORY: R91.1 - Solitary pulmonary nodule TECHNIQUE: Contiguous 5 mm axial imaging performed on the thorax. Coronal and sagittal reformats are submitted. All CT scans at [facility] use at least one of these dose optimization techniques: automated exposure control; mA and/or kV adjustment per patient size (includes targeted exams where dose is matched to clinical indication); or iterative reconstruction. CONTRAST: Omnipaque 350; 95 mL IV. DLP: 868.01 mGy.cm COMPARISON: 01/01/2021, 02/09/2020, PET/CT 07/18/2014. Lungs and central airway: Mild pulmonary hyperexpansion. No change in the noncalcified 6 mm slightly lobulated nodule in the LEFT upper lobe. Additional 4 mm nodule RIGHT upper lobe is stable. There are a few areas of very subtle subsolid nodularity RIGHT middle lobe and LEFT lower lobe, image 39 of se danitza 5. No interval change. No new pulmonary nodule or mass. Pleura: Normal. No pleural effusion. Heart and pericardium: Normal size heart with no pericardial effusion. Mediastinum and mirna: 13 mm high RIGHT paratracheal lymph node. This lymph node was present on the pr ior study. There are few at additional smaller lymph nodes in a similar location. No new or enlarging lymph nodes. Vessels: Mild atherosclerosis aorta. Normal size pulmonary artery. Mild coronary artery atherosclerot ic plaque. Chest wall and lower neck: No soft tissue masses. Upper abdomen: Hepatic steatosis. Dense LEFT renal masses. The largest measures 3.8 x 2.6 cm and is b een present since at least 2015 was slow increase in size. Additional low-attenuation nodule measurin g 1.5 cm from the posterior mid lateral kidney. New since 2016. Osseous structures: No destructive process. CT/CT chest w con* [id number] IMPRESSION: 1. No new or increase in size of the previously described pulmonary nodules. N odules are stable since 02/09/2020 and 01/15/2018. No additional imaging necess yina for these nodules. 2. Hyperdense nodules LEFT kidney. The largest one is increasing in size and t here is a new smaller more lateral but similar hyperdense renal mass. Prior PET /CT from 2014 was negative. Due to the increase in size and the new LEFT renal mass recommendation is for follow-up ultrasound of the kidneys.
== END 2022-02-04 15:08 | disposition home or self-care (01) ==
LOC: RAD 15:07
PROVIDERS: PCP Family Medicine; Visit Provider Thoracic Surgery (Cardiothoracic Vascular Surgery)
DX: R91.1 Solitary pulmonary nodule (principal); N28.89 Other specified disorders of kidney and ureter
CPT/HCPCS: 71260

== ENCOUNTER → 2022-02-28 10:21 | Outpatient (BNVA) | payer MEDICARE, OTHER, SELFPAY | PROVIDERS: PCP Family Medicine; Visit Provider Thoracic Surgery (Cardiothoracic Vascular Surgery) | DX: R91.1 Solitary pulmonary nodule (principal); Z91.89 Other specified personal risk factors, not elsewhere classified; Z87.891 Personal history of nicotine dependence | CPT/HCPCS: 99213 ==

== ENCOUNTER 2022-03-14 06:50 | Outpatient (CLI) | payer MEDICARE, OTHER, SELFPAY ==
--- NOTE | 2022-03-14 07:15 | USCV_ITS ---
Richmond Davis Age: 76 Gender: M : 1945 Exam Date: 03/14/2022 07:08 Ordering Phys: Jamin Adair MD (Andy) ([email or web address] – [place]) Technologist: Carmen Plascencia Exam Location: [facility] [place] Indication: RENAL MASSES Aortic Velocity @ SMA (cm/s) 39.6 RIGHT KIDNEY LEFT KIDNEY Velocity (cm/s) Velocity (cm/s) Sys/Anguiano Sys/Anguiano Resistive Index Resistive Index 118.0 / 45.0 Proximal Renal Artery 138.6 / 33.3 0.76 97.9 / 22.1 0.77 Mid Renal Artery 150.4 / 37.9 0.75 113.9 / 113.9 0.00 Distal Renal Artery 146.5 / 34.0 0.77 94.5 / 29.0 0.69 Hilar 73.3 / 19.5 0.73 35.4 / 15.0 0.58 Upper Pole 34.3 / 9.1 0.74 48.9 / 10.2 0.79 Mid Pole 26.7 / 9.6 0.64 28.3 / 9.3 0.67 Lower Pole 22.7 / 7.1 0.69 2.90 Renal Aortic Ratio 3.80 Accleration Index (cm/sec2) 709.00 Hilar 1438.0 0 976.00 Upper Pole 391.00 612.00 Mid Pole 492.00 800.00 Lower Pole 487.00 119.1 Kidney Length (mm) 137.8 FINDINGS The renal aortic ratio of 2.9 on the right and 3.8 on the left. Normal resistive indicis Normal acceleration indicis Dimension of t 11.9 cm on the right and 13.8 cm on the left CONCLUSIONS 1. Normal kidney dimensions 2. Elevated renal aortic ratio possibly related to abnormally low aortic velocities. Proximal renal artery stenosis greater than 50%, cannot be excluded 3. Normal resistive indicis and acceleration indicis-suggesting no significant arterial obstruction Consider CTA or MRA to better evaluate the renal arteries, if clinically indicated Dr Ambrosio Suero MD [facility] (Electronically Signed) Final Date: 15 March 2022 14:03 S
== END 2022-03-14 06:51 | disposition home or self-care (01) ==
LOC: RAD 06:53
PROVIDERS: PCP Family Medicine; Visit Provider Thoracic Surgery (Cardiothoracic Vascular Surgery)
DX: N28.89 Other specified disorders of kidney and ureter (principal)
CPT/HCPCS: 93975

== ENCOUNTER → 2022-03-22 08:28 | Outpatient (BNVA) | payer MEDICARE, OTHER, SELFPAY | PROVIDERS: PCP Family Medicine; Visit Provider Urology | DX: Z12.5 Encounter for screening for malignant neoplasm of prostate (principal); N28.89 Other specified disorders of kidney and ureter; N39.0 Urinary tract infection, site not specified; N40.1 Benign prostatic hyperplasia with lower urinary tract symptoms | CPT/HCPCS: 51798; 81003; 87077; 87086; 87186; 99213 ==

== ENCOUNTER 2022-04-10 13:46 | Outpatient (CLI) | payer MEDICARE, OTHER, SELFPAY ==
--- NOTE | 2022-04-10 14:15 | US_ITS ---
WS: [id number] RENAL ULTRASOUND HISTORY: LEFT RENAL MASS COMPARISON: Prior CT 02/04/2022. TECHNIQUE: 2-D and color Doppler imaging of the kidney submitted. Right kidney: 10.8 cm x 5.8 cm x 6.1 cm. Normal size kidney. Mild increased echogenicity. Cortical cyst mid kidney measures 1.6 x 1.8 x 1.9 cm . No obstruction or solid mass identified. Left kidney: 11.5 cm x 5.7 cm x 6.5 cm. Normal size kidney with mild increased echogenicity. Lobulated complex cyst from the superior kidney measures 2.9 x 3.3 x 3.0 cm. Corresponds to the cyst on the prior CT which is increased in size. This is not a simple cyst. There is additional smaller simple cyst in the mid kidney measuring 1.2 x 1.1 x 1.9 cm. Aorta: Normal. Urinary Bladder: Minimally distended bladder. Heterogeneous enlarged prostate gland measures 5.3 x 5. 5 x 5.2 cm. US/US renal BI* [id number] IMPRESSION: 1. Complex cystic mass superior pole LEFT kidney measures 2.9 x 3.3 x 3.0 cm. Corresponds to the mass seen on recent CT. This is not a simple cyst. May be a complex benign cyst with increased proteinaceous content. Recommend 6 month ult rasound surveillance. 2. Additional benign bilateral cysts. 3. Markedly enlarged prostate gland.
== END 2022-04-10 13:47 | disposition home or self-care (01) ==
LOC: RAD 13:48
PROVIDERS: PCP Family Medicine; Visit Provider Urology
DX: N40.1 Benign prostatic hyperplasia with lower urinary tract symptoms (principal); N28.89 Other specified disorders of kidney and ureter
CPT/HCPCS: 51741; 51798; 76770; 81003; 99214

== ENCOUNTER → 2022-08-05 16:12 | Outpatient (BNVA) | payer MEDICARE, OTHER, SELFPAY | PROVIDERS: PCP Family Medicine; Visit Provider Urology | DX: N40.1 Benign prostatic hyperplasia with lower urinary tract symptoms (principal); N28.89 Other specified disorders of kidney and ureter; N41.1 Chronic prostatitis; R31.0 Gross hematuria; N39.0 Urinary tract infection, site not specified | CPT/HCPCS: 51741; 51798; 52000; 81003; 99213 ==

== ENCOUNTER → 2022-08-07 11:31 | Outpatient (BNVA) | payer MEDICARE, OTHER, SELFPAY | PROVIDERS: PCP Family Medicine; Visit Provider Family Medicine | DX: N39.0 Urinary tract infection, site not specified (principal) | CPT/HCPCS: 81000; 87077; 87086; 87184 ==

== ENCOUNTER 2022-08-13 15:37 | Emergency (ER) | payer MEDICARE, OTHER, SELFPAY ==
[2022-08-13 15:53] VITALS: BP 179/94; PULSE 67; RESP 12; TEMP 36.3; O2SAT 98; BMI 30.1
[2022-08-13 17:01] VITALS: BP 162/105; PULSE 77; RESP 16; O2SAT 97
--- NOTE | 2022-08-13 17:08 | ED_ITS ---
HPI - Male Genitourinary General: Chief complaint: Urogenital-Male Stated complaint: hurts to pee Time Seen by Provider: 08/13/22 16:59 History of Present Illness: Presents to the ER with complaints that it hurts to pee and that he cannot pee very well. Patient does see urologist has had cystoscopy done about a week ago and the started after that. Patient is currently on an antibiotic Cipro that got from his PCP. MD Complaint: other (Urinary retention dysuria) Onset (ago): week(s) (About a week since cystoscopy) Duration: constant Severity: moderate Review of Systems General: Reports: 10 or more systems reviewed and unremarkable except in HPI and below PFSH ED PFSH: Medical History BPH loc w urin obs/LUTS COPD (chronic obstructive pulmonary disease) DM type 2 (diabetes mellitus, type 2) Hypertension Lung nodule Pulmonary nodule less than 1 cm in diameter with moderate to high risk for malignant neoplasm Streptococcal bacteremia Surgical History H/O hernia repair History of left knee replacement History of throat surgery Family History Father , AT AGE 69 CAD (coronary artery disease) Heart attack Mother , AT AGE 92 Alzheimer's dementia Social History Smoking and tobacco status: former smoker Alcohol intake: never Substance/Drug Use: never Marital status: Current occupational status: retired Physical Exam Const: COMMON NORMALS: no acute distress, average body habitus, patient oriented x3, no limitations, healthy appearing, alert and well nourished HENMT: COMMON NORMALS: normocephalic, atraumatic, hearing grossly normal bilaterally, external ears normal, Normal external nose present and moist oral mucous membranes HEAD & SCALP: normocephalic and atraumatic NOSE: Normal external nose present EXTERNAL EAR: Yes external ears normal Neck/C-Spine: COMMON NORMALS: no JVD Chest: COMMONS NORMALS: normal inspection of the chest and normal palpation of entire chest wall Resp: COMMON NORMALS: normal respiratory effort, No retractions, No use of accessory muscles and clear to auscultation bilaterally AUSCULTATION: clear to auscultation bilaterally Cardio: COMMON NORMALS: no JVD, regular rate, regular rhythm, S1 normal heart sound present, S2 normal heart sound present, No gallops present (Cardio), No clicks present (Cardio) and No murmurs present (Cardio) RATE: regular rate RHYTHM: regular rhythm HEART SOUNDS: S1 normal heart sound present and S2 normal heart sound present GI: COMMON NORMALS: Normal to inspection, nondistended, normoactive bowel sounds present, Soft to palpation, non-tender, No hepatosplenomegaly present and no masses PALPATION: Yes Soft to palpation and Yes No hepatosplenomegaly present : COMMON NORMALS: Yes no CVA tenderness BLADDER/KIDNEY EXAM: Yes no CVA tenderness OTHER: About 300 mils postvoid residual bladder scan Back/Pelvis: COMMON NORMALS: no CVA tenderness Neuro: COMMON NORMALS: patient oriented x3 SENSORIUM/ORIENTATION: Yes alert Course Vital Signs: Vital signs: Vital Signs Temperature 97.4 F L 08/13/22 15:53 Pulse Rate 75 08/13/22 18:48 Respiratory Rate 16 08/13/22 18:48 Blood Pressure 170/95 08/13/22 18:48 Pulse Oximetry 95 08/13/22 18:48 Oxygen Delivery Me thod Room Air 08/13/22 18:48 MDM - Male Medical Decision Making Patient presents to the ER with complaints of urinary retention and dysuria for the last week post cystoscopy. Patient is already on Cipro. This has been worsening by the day. Patient had about 300 mL in his bladder left after voiding. Lab work was obtained which was essentially benign. Ortega catheter w as placed which gave patient immediate relief. Patient be discharged with Ortega catheter in place and he should follow-up with his PCP/urologist in 2 to 3 days for possible removal. Differential Diagnosis Likely acute retention of urine; Unlikely urinary tract infection, priapism, urethritis, epididymitis, genital herpes simplex or inguinal hernia Medical Records I reviewed the patient's medical records. Lab Data I reviewed the patient's lab results. 08/13/22 17:30 08/13/22 17:30 Laboratory Results WBC 10.1 10^3/uL (4.0-10.0) H 08/13/22 17:30 RBC 5.01 10^6/uL (4.1-5.3) 08/13/22 17: Hgb 13.1 g/dL (11.7-16.6) 08/13/22 17: Hct 41.0 % (42.0-52.0) L 08/13/22 17: MCV 81.8 fl (80-94) 08/13/22 17: MCH 26.1 pg (28.0-34.0) L 08/13/22 17: MCHC 32.0 g/dL (30.0-36.0) 08/13/22 17: RDW 16.1 % (12.1-15.1) H 08/13/22: Plt Count 370 10^3/cmm (130-400) 08/13/22: MPV 9.8 fL (7.4-10.4) 08/13/22 17: Neut % (Auto) 76.6 % 08/13/22: Lymph % (Auto) 12.7 % 08/13/22: Barnes % (Auto) 6.0 % 08/13/22 17: Eos % (Auto) 1.9 % 08/13/22 17: Baso % (Auto) 0.9 % 08/13/22: Neut # (Auto) 7.73 10^3/uL (1.8-7.7) H 08/13/22: Lymph # (Auto) 1.3 10^3/uL (0.8-4.8) 08/13/22: Barnes # (Auto) 0.6 10^3/uL (0.2-0.9) 08/13/22: Eos # (Auto) 0.2 10^3/uL (0.0-0.8) 08/13/22: Baso # (Auto) 0.1 10^3/uL (0.0-0.1) 08/13/22: Nucleated RBC % (auto) 0 % 08/13/22: Nucleated RBCs # 0.0 /100WBC 08/13/22 17: Sodium 138 mmol/L (136-145) 08/13/22: Potassium 3.9 mmol/L (3.5-5.1) 08/13/22 17:30 Chloride 99 mmol/L (98-107) 08/13/22 17:30 Carbon Dioxide 26 mmol/L (22-29) 08/13/22 17:30 Anion Gap 16.9 (5-19) 08/13/22 17:30 BUN 13 mg/dL (8-23) 08/13/22 17:30 Creatinine 1.2 mg/dL (0.7-1.2) 08/13/22 17:30 GFR Calculation Not Reportable 08/13/22 17:30 Glucose 123 mg/dL (65-115) H 08/13/22 17:30 Calculated Osmolality 287 mOsm/kg (285-295) 08/13/22 17:30 Calcium 9.1 mg/dL (8.5-10.5) 08/13/22 17:30 Total Bilirubin 0.2 mg/dL (0.15-1.2) 08/13/22 17:30 AST 16 U/L (0-40) 08/13/22 17:30 ALT 15 U/L (0-41) 08/13/22 17:30 Alkaline Phosphatase 94 U/L (40-130) 08/13/22 17:30 Total Protein 7.3 g/dL (6.6-8.7) 08/13/22 17:30 Albumin 4.0 g/dL (3.5-5.2) 08/13/22 17:30 Globulin 3.3 g/dL (1.3-4.6) 08/13/22 17:30 Urine Color Light yellow (Yellow) 08/13/22 16:47 Urine Appearance Clear (CLEAR) 08/13/22 16:47 Urine pH 6.5 (5-7) 08/13/22 16:47 Ur Specific [place] 1.015 (1.005-1.030) 08/13/22 16:47 Urine Protein Neg (Negative) 08/13/22 16:47 Urine Glucose (UA) Norm (Normal) 08/13/22 16:47 Urine Ketones Negative (Negative) 08/13/22 16:47 Urine Blood 2+ (Negative) H 08/13/22 16:47 Urine Nitrate Negative (Negative) 08/13/22 16:47 Urine Bilirubin Neg (Negative) 08/13/22 16:47 Urine Urobilinogen Norm mg/dL (Negative) 08/13/22 16:47 Ur Leukocyte Esterase Negative (Negative) 08/13/22 16:47 Urine RBC 0-4 /hpf (0-2) H 08/13/22 16:47 Urine WBC None /hpf (0-5) 08/13/22 16:47 Ur Squamous Epith Cells None /hpf (0-5) 08/13/22 16:47 Amorphous Sediment Not Reportable 08/13/22 16:47 Urine Bacteria Trace /hpf (NONE) 08/13/22 16:47 Discharge Plan Discharge Patient Disposition: Home Clinical Impression: Acute retention of urine Condition: Stable Prescriptions: No Action docusate sodium [Dulcolax Stool Softener (dss)] 100 mg capsule 100 mg PO DAILY PRN tamsulosin 0.4 mg capsule 0.8 mg PO DAILY@2100 Qty: 180 3RF ciprofloxacin HCl 500 mg tablet 500 mg PO BID Qty: 60 4RF finasteride 5 mg tablet 5 mg PO QDAY Qty: 90 3RF hydrochlorothiazide 25 mg tablet 25 mg PO DAILY@0700 Qty: 30 12RF metformin 500 mg tablet 1,000 mg PO BID@0700,2100 Qty: 60 11RF Discharge Orders: Discharge ED (Routine); Ordered 08/13/22 Ordered By: Monroe Ruiz Referrals: Sean Rivera MD [Primary Care Provider] - Patient Instructions: Urinary Retention in Men (ED) Activity Restrictions/Additional Instructions: Please follow-up with your primary care or urologist in approximately 2 to 3 days for possible Ortega catheter removal. Please finish your antibiotics as previously prescribed as directed. Coding Level of Care Code ED Supervisor [employer] for Mark Goldsmith
[2022-08-13 17:33] VITALS: BP 188/97; PULSE 70; RESP 16; O2SAT 93
[2022-08-13 17:50] LABS: Basophils # 0.1 10^3/uL (0.0-0.1); Basophils % 0.9 %; Eosinophils # 0.2 10^3/uL (0.0-0.8); Eosinophils % 1.9 %; Hemoglobin 13.1 g/dL (11.7-16.6); Lymphocytes # 1.3 10^3/uL (0.8-4.8); Lymphocytes % 12.7 %; Mean Corpuscular Hemoglobin 26.1 pg (28.0-34.0); Mean Corpuscular Volume 81.8 fl (80-94); Mean Platelet Volume 9.8 fL (7.4-10.4); Monocytes # 0.6 10^3/uL (0.2-0.9); Neutrophils # 7.73 10^3/uL (1.8-7.7); Neutrophils % 76.6 %; Nucleated Red Blood Cells % 0 %; Platelet Count 370 10^3/cmm (130-400); Red Blood Count 5.01 10^6/uL (4.1-5.3); Red Cell Distribution Width 16.1 % (12.1-15.1); White Blood Count 10.1 10^3/uL (4.0-10.0)
[2022-08-13 18:16] LABS: Alanine Aminotransferase 15 U/L (0-41); Alkaline Phosphatase 94 U/L (40-130); Anion Gap 16.9 (5-19); Aspartate Amino Transferase 16 U/L (0-40); Blood Urea Nitrogen 13 mg/dL (8-23); Calcium 9.1 mg/dL (8.5-10.5); Carbon Dioxide 26 mmol/L (22-29); Chloride 99 mmol/L (98-107); Globulin 3.3 g/dL (1.3-4.6); Glucose 123 mg/dL (65-115); Osmolality Calculated 287 mOsm/kg (285-295); Potassium 3.9 mmol/L (3.5-5.1); Sodium 138 mmol/L (136-145); Total Bilirubin 0.2 mg/dL (0.15-1.2); Total Protein 7.3 g/dL (6.6-8.7)
[2022-08-13 18:47] LABS: Bilirubin Urine Neg (Negative); Blood Urine 2+ (Negative); Glucose Urine UA Norm (Normal); Ketones Urine Negative (Negative); Leukocyte Esterase Urine Negative (Negative); Nitrate Urine Negative (Negative); Protein Urine Neg (Negative); Specific Gravity, Urine 1.015 (1.005-1.030); Urine Appearance Clear (CLEAR); Urine Color Light yellow (Yellow); Urobilinogen Urine Norm (Negative); pH Urine 6.5 (5-7)
[2022-08-13 18:48] VITALS: BP 170/95; PULSE 75; RESP 16; O2SAT 95
[2022-08-13 18:48] LABS: Add Urine Culture? No; Add Urine Microscopic? YES; Bacteria Urine TRACE /hpf; RBC Urine 0-4 /hpf (0-2)
== END 2022-08-13 19:37 | disposition home or self-care (01) ==
PROVIDERS: Emergency Provider Emergency Medicine; PCP Family Medicine
DX: R33.9 Retention of urine, unspecified (principal); Z79.84 Long term (current) use of oral hypoglycemic drugs; J44.9 Chronic obstructive pulmonary disease, unspecified; E11.9 Type 2 diabetes mellitus without complications; I10 Essential (primary) hypertension; Z87.891 Personal history of nicotine dependence
CPT/HCPCS: 36415; 51702; 51798; 80053; 81001; 85025; 99283

== ENCOUNTER 2022-08-20 19:07 | Emergency (ER) | payer MEDICARE, OTHER, SELFPAY ==
[2022-08-20 19:17] VITALS: BP 151/89; PULSE 100; RESP 14; TEMP 36.6; O2SAT 96; BMI 30.1
--- NOTE | 2022-08-20 21:32 | ED_ITS ---
HPI - Male Genitourinary General: Chief complaint: Urogenital-Male Stated complaint: trouble urinating Time Seen by Provider: 08/20/22 21:32 History of Present Illness: Mr. Davis is a 76-year-old gentleman with history of prostatomegaly and suspected chronic prostatitis presented to the emergency department for pain with urination and urinary difficulty. He notes recent history of having to have a catheter which was subsequently removed. He feels like he has been voiding okay however his had increased pain with urination which is burning and aching in the lower abdomen. Denies fevers or nausea or vomiting, denies changes in bowel movements, he has had frequent small amounts of urine output however denies any abnormal colors or smells. No other specific changes in health, exacerbating, or alleviating factors identified. Onset (ago): hour(s) Severity: moderate Quality: burning Relieving factors: none Exacerbating factors: urination Context: other Review of Systems General: Reports: 10 or more systems reviewed and unremarkable except in HPI and below PFSH ED PFSH: Medical History BPH loc w urin obs/LUTS COPD (chronic obstructive pulmonary disease) DM type 2 (diabetes mellitus, type 2) Hypertension Lung nodule Pulmonary nodule less than 1 cm in diameter with moderate to high risk for malignant neoplasm Streptococcal bacteremia Surgical History H/O hernia repair History of left knee replacement History of throat surgery Family History Father , AT AGE 69 CAD (coronary artery disease) Heart attack Mother , AT AGE 92 Alzheimer's dementia Social History Smoking and tobacco status: former smoker Alcohol intake: never Substance/Drug Use: never Marital status: Current occupational status: retired Physical Exam Const: COMMON NORMALS: alert GENERAL APPEARANCE: cooperative and well developed HENMT: COMMON NORMALS: normocephalic and atraumatic HEAD & SCALP: normocephalic and atraumatic Eye: COMMON NORMALS: conjunctivae normal CONJUNCTIVA: Yes conjunctivae normal SCLERA: sclerae normal Neck/C-Spine: COMMON NORMALS: supple GENERAL: Yes trachea midline Resp: COMMON NORMALS: normal respiratory effort EFFORT & INSPECTION: Yes able to speak in complete sentences Cardio: COMMON NORMALS: regular rate and regular rhythm RATE: regular rate RHYTHM: regular rhythm GI: COMMON NORMALS: Soft to palpation PALPATION: Yes Soft to palpation, Yes Tenderness to palpation present (GI) (Suprapubic, mild), No Guarding due to palpation present (GI) and No Rigid due to palpation : COMMON NORMALS: Yes normal external exam, Yes Testes normal and Yes scrotum normal Extremity: GENERAL: Yes normal exam except as noted and No edema Neuro: COMMON NORMALS: moves all extremities SENSORIUM/ORIENTATION: Yes alert and No Orientation impaired Psych: COMMON NORMALS: mental status grossly normal and Normal thought process present THOUGHT PROCESS: Normal thought process present Course Vital Signs: Vital signs: Vital Signs Temperature 97.8 F 08/20/22 19:17 Pulse Rate 87 08/20/22 23:24 Respiratory Rate 20 H 08/20/22 23:24 Blood Pressure 152/121 08/20/22 23:24 Pulse Oximetry 92 08/20/22 23:24 Oxygen Delivery Me thod Room Air 08/20/22 22:16 MDM - Male Medical Decision Making 76-year-old gentleman presenting to the emergency department for concern over urinary pain and difficulty. Exam as above. He does endorse recent Ortega catheter placement however at this removed. He had discomfort with the catheter and was not on antispasmodics or other pain medication while this was in place. Bladder scan reveals less than 400 cc. Clinically patient does not have enlarged/palpable bladder. He is nontoxic in appearance and there is no james dence of acute surgical abdomen. Mild elevation in the white blood cell count at 12.9, normal hemoglobin and platelet count. Metabolic panel with near baseline/minimally elevated creatinine, electrolyte panel is normal. Urinalysis is unremarkable Prior imaging reviewed, no indication for repeat. Patient is able to void though does have small amounts. Exact etiology of symptoms is unclear. He does have a history of chronic prostatitis. There may be also an element of chemical/mechanical or infectious urethritis which will be treated. On reassessment after treatment patient feels improved. Given clinical history and likely chronic prostatitis as well as recurrent pain with urination and urinary hesitancy patient requires follow-up with urology. Her urologist is retiring and therefore I will message case management for follow-up at [facility] as requested by the patient. The results of ED evaluation were discussed with the patient including prescriptions and/or symptomatic cares (if applicable) including appropriate and responsible use, followup plan, and return precautions. Strict return precautions given for urinary retention. The patient verbalized understanding and felt safe for discharge. Medical Records I reviewed the patient's medical records. Lab Data I reviewed the patient's lab results. 08/20/22 21:54 08/20/22 21:54 Laboratory Results WBC 12.9 10^3/uL (4.0-10.0) H 08/20/22 21:54 RBC 5.19 10^6/uL (4.1-5.3) 08/20/22 21:54 Hgb 13.3 g/dL (11.7-16.6) 08/20/22 21:54 Hct 41.8 % (42.0-52.0) L 08/20/22 21:54 MCV 80.5 fl (80-94) 08/20/22 21:54 MCH 25.6 pg (28.0-34.0) L 08/20/22 21:54 MCHC 31.8 g/dL (30.0-36.0) 08/20/22 21:54 RDW 16.1 % (12.1-15.1) H 08/20/22 21:54 Plt Count 350 10^3/cmm (130-400) 08/20/22 21:54 MPV 9.6 fL (7.4-10.4) 08/20/22 21:54 Neut % (Auto) 74.5 % 08/20/22 21:54 Lymph % (Auto) 14.0 % 08/20/22 21:54 [place] % (Auto) 8.1 % 08/20/22 21:54 Eos % (Auto) 1.6 % 08/20/22 21:54 Baso % (Auto) 0.9 % 08/20/22 21:54 Neut # (Auto) 9.61 10^3/uL (1.8-7.7) H 08/20/22 21:54 Lymph # (Auto) 1.8 10^3/uL (0.8-4.8) 08/20/22 21:54 [place] # (Auto) 1.0 10^3/uL (0.2-0.9) H 08/20/22 21:54 Eos # (Auto) 0.2 10^3/uL (0.0-0.8) 08/20/22 21:54 Baso # (Auto) 0.1 10^3/uL (0.0-0.1) 08/20/22 21:54 Nucleated RBC % (auto) 0 % 08/20/22 21:54 Nucleated RBCs # 0.0 /100WBC 08/20/22 21:54 Sodium 137 mmol/L (136-145) 08/20/22 21:54 Potassium 3.5 mmol/L (3.5-5.1) 08/20/22 21:54 Chloride 99 mmol/L (98-107) 08/20/22 21:54 Carbon Dioxide 28 mmol/L (22-29) 08/20/22 21:54 Anion Gap 13.5 (5-19) 08/20/22 21:54 BUN 16 mg/dL (8-23) 08/20/22 21:54 Creatinine 1.5 mg/dL (0.7-1.2) H 08/20/22 21:54 GFR Calculation Not Reportable 08/20/22 21:54 Glucose 125 mg/dL (65-115) H 08/20/22 21:54 Calculated Osmolality 287 mOsm/kg (285-295) 08/20/22 21:54 Calcium 9.2 mg/dL (8.5-10.5) 08/20/22 21:54 Urine Color Light yellow (Yellow) 08/20/22 21:39 Urine Appearance Clear (CLEAR) 08/20/22 21:39 Urine pH 6 (5-7) 08/20/22 21:39 Ur Specific [place] 1.010 (1.005-1.030) 08/20/22 21:39 Urine Protein Neg (Negative) 08/20/22 21:39 Urine Glucose (UA) Norm (Normal) 08/20/22 21:39 Urine Ketones Negative (Negative) 08/20/22 21:39 Urine Blood Neg (Negative) 08/20/22 21:39 Urine Nitrate Negative (Negative) 08/20/22 21:39 Urine Bilirubin Neg (Negative) 08/20/22 21:39 Urine Urobilinogen Norm mg/dL (Negative) 08/20/22 21:39 Ur Leukocyte Esterase Negative (Negative) 08/20/22 21:39 Discharge Plan Discharge Patient Disposition: Home Clinical Impression: Urinary pain, Urethritis, Prostatitis, Bladder spasms Condition: Stable Prescriptions: New oxycodone 5 mg tablet 5 mg PO Q4H PRN (Reason: pain) Qty: 10 0RF Levsin 0.125 mg tablet 0.125 mg PO Q12H PRN (Reason: bladder spasms) Qty: 20 0RF No Action docusate sodium [Dulcolax Stool Softener (dss)] 100 mg capsule 100 mg PO DAILY PRN tamsulosin 0.4 mg capsule 0.8 mg PO DAILY@2100 Qty: 180 3RF ciprofloxacin HCl 500 mg tablet 500 mg PO BID Qty: 60 4RF finasteride 5 mg tablet 5 mg PO QDAY Qty: 90 3RF hydrochlorothiazide 25 mg tablet 25 mg PO DAILY@0700 Qty: 30 12RF metformin 500 mg tablet 1,000 mg PO BID@0700,2100 Qty: 60 11RF Discharge Orders: Discharge ED (Routine); Ordered 08/20/22 Ordered By: [place] Referrals: Sean Rivera MD [Primary Care Provider] - Discharge Diet: Usual diet Discharge Activity: Increase activity as tolerated Patient Instructions: Opioid Safety, Urethritis - Male Activity Restrictions/Additional Instructions: Thank you for visiting the emergency department. You were seen and evaluated for genitourinary pain. The exact cause of your symptoms is unclear however may be related to irritation or infection of the urethra. I recommend continuing your previously prescribed medications. You may use [id number] medications such as acetaminophen and ibuprofen for pain however please do not exceed the daily recommended dosage as listed on the packaging and please keep in mind that many namebrand medications contain the same active ingredients. Please avoid these medications if previously instructed to do so by another physician due to other underlying medical condition. I will prescribe oxycodone, use this cautiously as discussed. Given mild elevation in creatinine I recommend if using NSAIDs to ensure that you are staying hydrated. Please also use NSAIDs cautiously. I will message case management for urology follow-up. Please also follow-up with your primary care provider. Return to the emergency department for uncontrolled symptoms, inability to urinate, fevers, or anything else that you are concerned about and feel needs Emergency Department evaluation. Coding Level of Care Code ED Bedspread [employer] Hand for Mark Goldsmith
[2022-08-20 21:51] LABS: Add Urine Microscopic? NO; Charge for UA Resulting for Rev
[2022-08-20 21:56] LABS: Bilirubin Urine Neg (Negative); Blood Urine Neg (Negative); Glucose Urine UA Norm (Normal); Ketones Urine Negative (Negative); Leukocyte Esterase Urine Negative (Negative); Nitrate Urine Negative (Negative); Protein Urine Neg (Negative); Urine Appearance Clear (CLEAR); Urine Color Light yellow (Yellow); Urobilinogen Urine Norm (Negative); pH Urine 6 (5-7)
[2022-08-20 22:01] LABS: Basophils # 0.1 10^3/uL (0.0-0.1); Basophils % 0.9 %; Eosinophils # 0.2 10^3/uL (0.0-0.8); Eosinophils % 1.6 %; Hematocrit 41.8 % (42.0-52.0); Hemoglobin 13.3 g/dL (11.7-16.6); Lymphocytes # 1.8 10^3/uL (0.8-4.8); Mean Corpuscular HGB Conc 31.8 g/dL (30.0-36.0); Mean Corpuscular Hemoglobin 25.6 pg (28.0-34.0); Mean Corpuscular Volume 80.5 fl (80-94); Mean Platelet Volume 9.6 fL (7.4-10.4); Monocytes % 8.1 %; Neutrophils # 9.61 10^3/uL (1.8-7.7); Neutrophils % 74.5 %; Nucleated Red Blood Cells % 0 %; Platelet Count 350 10^3/cmm (130-400); Red Blood Count 5.19 10^6/uL (4.1-5.3); Red Cell Distribution Width 16.1 % (12.1-15.1); White Blood Count 12.9 10^3/uL (4.0-10.0)
[2022-08-20] MEDS: hyoscyamine ODT 0.125 mg Tablet PO (22:15)
[2022-08-20 22:16] VITALS: BP 160/85; PULSE 79; RESP 20; O2SAT 94
[2022-08-20 22:18] LABS: Anion Gap 13.5 (5-19); Blood Urea Nitrogen 16 mg/dL (8-23); Calcium 9.2 mg/dL (8.5-10.5); Carbon Dioxide 28 mmol/L (22-29); Chloride 99 mmol/L (98-107); Glucose 125 mg/dL (65-115); Osmolality Calculated 287 mOsm/kg (285-295); Potassium 3.5 mmol/L (3.5-5.1); Sodium 137 mmol/L (136-145)
[2022-08-20 23:11] VITALS: RESP 18
[2022-08-20] MEDS: metroNIDAZOLE 500 MG Tablet 2000 MG PO (23:11)
[2022-08-20] MEDS: oxyCODONE 5 mg IR Tab/Cap PO (23:11)
[2022-08-20] MEDS: fluconazole 100 mg Tablet 150 MG PO (23:11)
[2022-08-20 23:24] VITALS: BP 152/121; PULSE 87; RESP 20; O2SAT 92
--- NOTE | 2022-08-23 09:39 | DCPLANNER ---
Addendum entered by Ronit Torres 08/27/22 14:02: newspaper library manager called [facility] urology to confirm if clinic had received patients information. newspaper library manager was told that clinic had received patients information. Original Note: newspaper library manager had message to refer patient to [facility] urology in [place]. newspaper library manager faxed patients information to the urology clinic at [facility]. Patients information will be reviewed, clinic will call patient with appointment information.
== END 2022-08-20 23:27 | disposition home or self-care (01) ==
PROVIDERS: Emergency Provider Emergency Medicine; PCP Family Medicine
DX: N34.2 Other urethritis (principal); N41.9 Inflammatory disease of prostate, unspecified; N32.89 Other specified disorders of bladder
CPT/HCPCS: 51798; 80048; 81003; 85025; 99283

== ENCOUNTER 2022-08-21 14:10 | Emergency (ER) | payer MEDICARE, OTHER, SELFPAY ==
[2022-08-21 14:16] VITALS: BP 163/92; PULSE 95; RESP 16; TEMP 36.7; O2SAT 97; BMI 30.1
--- NOTE | 2022-08-21 15:45 | W.ED.MALEGU ---
HPI - Male Genitourinary General: Chief complaint: Urogenital-Male Stated complaint: unable to urinate Time Seen by Provider: 08/21/22 15:36 History of Present Illness: Patient presents to the ER with bladder type pain and urinary retention. Patient is able to urinate only a dribble and feels like he is backing up and unable to empty is much as he needs. Patient at this for the last several weeks has been seen in the ER a couple times and as well as his family doctor couple times had a Ortega placed a couple times Complaint: dysuria Onset (ago): day(s) Duration: constant and progressively worsening Location: abdomen (Suprapubic) Severity: moderate Quality: aching and dull Relieving factors: other (When Ortega was placed) Exacerbating factors: other (When Ortega was removed) Context: other (BPH and prostatic megaly) Associated symptoms: Reports urinary retention Review of Systems General: Reports: 10 or more systems reviewed and unremarkable except in HPI and below PFSH ED PFSH: Medical History BPH loc w urin obs/LUTS COPD (chronic obstructive pulmonary disease) DM type 2 (diabetes mellitus, type 2) Hypertension Lung nodule Pulmonary nodule less than 1 cm in diameter with moderate to high risk for malignant neoplasm Streptococcal bacteremia Surgical History H/O hernia repair History of left knee replacement History of throat surgery Family History Father , AT AGE 69 CAD (coronary artery disease) Heart attack Mother , AT AGE 92 Alzheimer's dementia Social History Smoking and tobacco status: former smoker Alcohol intake: never Substance/Drug Use: never Marital status: Current occupational status: retired Physical Exam Const: COMMON NORMALS: no acute distress, average body habitus, patient oriented x3, no limitations, healthy appearing, alert and well nourished HENMT: COMMON NORMALS: normocephalic, atraumatic, hearing grossly normal bilaterally, Normal external nose present and moist oral mucous membranes HEAD & SCALP: normocephalic and atraumatic NOSE: Normal external nose present Neck/C-Spine: COMMON NORMALS: full ROM, no lymphadenopathy, supple, no meningeal signs, no JVD and Thyroid normal THYROID: Thyroid normal Chest: COMMONS NORMALS: normal inspection of the chest and normal palpation of entire chest wall Resp: COMMON NORMALS: normal respiratory effort, No retractions, No use of accessory muscles and clear to auscultation bilaterally AUSCULTATION: clear to auscultation bilaterally Cardio: COMMON NORMALS: no JVD, regular rate, regular rhythm, S1 normal heart sound present, S2 normal heart sound present, No gallops present (Cardio), No clicks present (Cardio), No murmurs present (Cardio) and No rub (Cardio) RATE: regular rate RHYTHM: regular rhythm HEART SOUNDS: S1 normal heart sound present and S2 normal heart sound present GI: COMMON NORMALS: Normal to inspection, nondistended, normoactive bowel sounds present, Soft to palpation, No hepatosplenomegaly present and no masses PALPATION: Yes Soft to palpation, Yes Tenderness to palpation present (GI) (Suprapubically) and Yes No hepatosplenomegaly present : COMMON NORMALS: Yes no CVA tenderness BLADDER/KIDNEY EXAM: Yes no CVA tenderness Back/Pelvis: COMMON NORMALS: no CVA tenderness Neuro: COMMON NORMALS: patient oriented x3 SENSORIUM/ORIENTATION: Yes alert MENINGEAL SIGNS: Yes no meningeal signs Course Vital Signs: Vital signs: Vital Signs Temperature 98.0 F 08/21/22 14:16 Pulse Rate 95 08/21/22 14:16 Respiratory Rate 16 08/21/22 14:16 Blood Pressure 163/92 08/21/22 14:16 Pulse Oximetry 97 08/21/22 14:16 Oxygen Delivery Me thod Room Air 08/21/22 14:16 MDM - Male Medical Decision Making Patient presented to the ER with complaints of urinary retention. Patient has had this problem several times in the past just recently had a Ortega catheter and removed about a week ago. Patient had a bladder scan in the ER that revealed approximately 350 to 375 mL of urine Ortega catheter was placed and greater than 400 mils was drained from the bladder patient felt immediately better. Urinalysis was clean. Patient be discharged home with a Ortega to be taken out by his family practice doctor and/or urologist. Patient should call their office for an appointment within next 1 week. Differential Diagnosis Likely acute retention of urine; Unlikely urinary tract infection, priapism, urethritis, epididymitis, genital herpes simplex, prostatitis or inguinal hernia Medical Records I reviewed the patient's medical records. Lab Data I reviewed the patient's lab results. Laboratory Results Urine Color Yellow (Yellow) 08/21/22 15:37 Urine Appearance Clear (CLEAR) 08/21/22 15:37 Urine pH 6 (5-7) 08/21/22 15:37 Ur Specific [place] 1.020 (1.005-1.030) 08/21/22 15:37 Urine Protein Neg (Negative) 08/21/22 15:37 Urine Glucose (UA) Norm (Normal) 08/21/22 15:37 Urine Ketones Negative (Negative) 08/21/22 15:37 Urine Blood Neg (Negative) 08/21/22 15:37 Urine Nitrate Negative (Negative) 08/21/22 15:37 Urine Bilirubin Neg (Negative) 08/21/22 15:37 Urine Urobilinogen Norm mg/dL (Negative) 08/21/22 15:37 Ur Leukocyte Esterase Negative (Negative) 08/21/22 15:37 Discharge Plan Discharge Patient Disposition: Home Clinical Impression: Acute retention of urine Condition: Stable Prescriptions: No Action docusate sodium [Dulcolax Stool Softener (dss)] 100 mg capsule 100 mg PO DAILY PRN tamsulosin 0.4 mg capsule 0.8 mg PO DAILY@2100 Qty: 180 3RF ciprofloxacin HCl 500 mg tablet 500 mg PO BID Qty: 60 4RF finasteride 5 mg tablet 5 mg PO QDAY Qty: 90 3RF hydrochlorothiazide 25 mg tablet 25 mg PO DAILY@0700 Qty: 30 12RF metformin 500 mg tablet 1,000 mg PO BID@0700,2100 Qty: 60 11RF oxycodone 5 mg tablet 5 mg PO Q4H PRN (Reason: pain) Qty: 10 0RF Levsin 0.125 mg tablet 0.125 mg PO Q12H PRN (Reason: bladder spasms) Qty: 20 0RF Discharge Orders: Discharge ED (Routine); Ordered 08/21/22 Ordered By: Monroe Ruiz Referrals: Sean Rivera MD [Primary Care Provider] - Patient Instructions: Urinary Retention in Men (ED), Ortega Catheter Placement and Care (ED) Activity Restrictions/Additional Instructions: Please call your urologist and/or primary care practitioner to have a follow-up within the next week to talk about removal of your Ortega catheter. Coding Level of Care Code ED Dispatch Supervisor for Mark Goldsmith
[2022-08-21 17:12] LABS: Add Urine Microscopic? NO; Charge for UA Resulting for Rev
[2022-08-21 17:34] LABS: Bilirubin Urine Neg (Negative); Blood Urine Neg (Negative); Glucose Urine UA Norm (Normal); Ketones Urine Negative (Negative); Leukocyte Esterase Urine Negative (Negative); Nitrate Urine Negative (Negative); Protein Urine Neg (Negative); Urine Appearance Clear (CLEAR); Urine Color Yellow (Yellow); Urobilinogen Urine Norm (Negative); pH Urine 6 (5-7)
== END 2022-08-21 18:14 | disposition home or self-care (01) ==
PROVIDERS: Emergency Provider Emergency Medicine; PCP Family Medicine
DX: R33.9 Retention of urine, unspecified (principal); Z79.84 Long term (current) use of oral hypoglycemic drugs; Z87.891 Personal history of nicotine dependence; J44.9 Chronic obstructive pulmonary disease, unspecified; E11.9 Type 2 diabetes mellitus without complications; I10 Essential (primary) hypertension
CPT/HCPCS: 36415; 51702; 81003; 99283

== ENCOUNTER 2022-08-23 14:24 | Emergency (ER) | payer MEDICARE, OTHER, SELFPAY ==
[2022-08-23 14:36] VITALS: PULSE 114; RESP 18; TEMP 36.8; O2SAT 97
--- NOTE | 2022-08-23 15:58 | W.ED.MALEGU ---
HPI - Male Genitourinary General: Chief complaint: Urogenital-Male Stated complaint: cath leak Time Seen by Provider: 08/23/22 15:38 Source: patient Mode of arrival: ambulatory Limitations: no limitations History of Present Illness: This patient returns to the emerged part because his catheter has been leaking around the urethra. States that has not any fevers or chills or any other discomfort other than 1 would expect with a Ortega in place. He apparently had urinary retention likely due to BPH and also was thought to have prostatic infection. He is currently taking ciprofloxacin as well as tamsulosin and finasteride as prescribed. Denies any other constitutional complaints at this time. Context: indwelling catheter Associated symptoms: Deny nausea or vomiting Review of Systems Const: Denies: fever(s), chills or body aches GI: Denies: abdominal pain, nausea, vomiting or diarrhea : Denies: flank pain or oliguria Musc: Denies: back pain Skin/Breast: Denies: rash, pruritus or erythema PFSH ED PFSH: Medical History BPH loc w urin obs/LUTS COPD (chronic obstructive pulmonary disease) DM type 2 (diabetes mellitus, type 2) Hypertension Lung nodule Pulmonary nodule less than 1 cm in diameter with moderate to high risk for malignant neoplasm Streptococcal bacteremia Surgical History H/O hernia repair History of left knee replacement History of throat surgery Family History Father , AT AGE 69 CAD (coronary artery disease) Heart attack Mother , AT AGE 92 Alzheimer's dementia Social History Smoking and tobacco status: former smoker Alcohol intake: never Substance/Drug Use: never Marital status: Current occupational status: retired Physical Exam Narrative: EXAM NARRATIVE: Patient is alert and comfortable in no acute distress. Const: COMMON NORMALS: no acute distress, average body habitus and patient oriented x3 GENERAL APPEARANCE: cooperative and comfortable HENMT: COMMON NORMALS: normocephalic HEAD & SCALP: normocephalic Eye: COMMON NORMALS: Equal, round and reactive pupils present PUPIL: Yes Equal, round and reactive pupils present Neck/C-Spine: COMMON NORMALS: full ROM Resp: COMMON NORMALS: normal respiratory effort and No use of accessory muscles EFFORT & INSPECTION: Yes able to speak in complete sentences Cardio: COMMON NORMALS: regular rate RATE: regular rate GI: COMMON NORMALS: Normal to inspection, nondistended, normoactive bowel sounds present, Soft to palpation and non-tender PALPATION: Yes Soft to palpation : COMMON NORMALS: Yes no CVA tenderness BLADDER/KIDNEY EXAM: Yes catheter in place and Yes no CVA tenderness MALE GROIN/PERINEUM EXAM: No erythema PENIS: normal penis Back/Pelvis: COMMON NORMALS: no CVA tenderness Extremity: COMMON NORMALS: normal to inspection and full ROM Neuro: COMMON NORMALS: patient oriented x3, moves all extremities and no focal motor deficits Skin: COMMON NORMALS: no rashes or lesions noted GENERAL SKIN EXAM: no rashes or lesions noted Course Vital Signs: Vital signs: Vital Signs Temperature 98.2 F 08/23/22 14:36 Pulse Rate 114 H 08/23/22 14:36 Respiratory Rate 18 08/23/22 14:36 Pulse Oximetry 97 08/23/22 14:36 Oxygen Delivery Me thod Room Air 08/23/22 14:36 MDM - Male Medical Decision Making Patient has indwelling Ortega due to urinary retention. Spent in situ approximately 7 perhaps 10 days. He had a replaced once in the interim. He has urology appointment pending. Discussed options to include replacing the catheter with a larger diameter catheter versus trial of voiding without the catheter. After some contemplation he chose the latter option. We will remove the catheter. We also advised him to continue all his medications. If he is unable to spontaneously void urine in the next 12 hours or so he will have to return for replacement of his catheter. Medical Records I reviewed the patient's medical records. Discharge Plan Discharge Patient Disposition: Home Clinical Impression: Prostatic hypertrophy, History of urinary retention Condition: Stable Prescriptions: No Action docusate sodium [Dulcolax Stool Softener (dss)] 100 mg capsule 100 mg PO DAILY PRN tamsulosin 0.4 mg capsule 0.8 mg PO DAILY@2100 Qty: 180 3RF ciprofloxacin HCl 500 mg tablet 500 mg PO BID Qty: 60 4RF finasteride 5 mg tablet 5 mg PO QDAY Qty: 90 3RF hydrochlorothiazide 25 mg tablet 25 mg PO DAILY@0700 Qty: 30 12RF metformin 500 mg tablet 1,000 mg PO BID@0700,2100 Qty: 60 11RF oxycodone 5 mg tablet 5 mg PO Q4H PRN (Reason: pain) Qty: 10 0RF Levsin 0.125 mg tablet 0.125 mg PO Q12H PRN (Reason: bladder spasms) Qty: 20 0RF Discharge Orders: Discharge ED (Routine); Ordered 08/23/22 Ordered By: Jerrell Nunes Referrals: Sean Rivera MD [Primary Care Provider] - Discharge Diet: Usual diet Discharge Activity: Increase activity as tolerated Patient Instructions: Opioid Safety, Pain Management Activity Restrictions/Additional Instructions: As we discussed while you are in the emergency department you have decided to try without your Ortega catheter. Certainly reasonable to do so. You should continue to drink your normal amounts of fluids etc. and take all your medications. If you have not urinated in 8-12 hours or you feel pressure or other discomfort you should return to the emergency department for reevaluation and potentially a replacement of your catheter. If you are doing well you should follow-up with urology as scheduled. Coding Level of Care Code ED Tax Collection Coordinator for Mark Goldsmith
== END 2022-08-23 16:10 | disposition home or self-care (01) ==
PROVIDERS: Emergency Provider Emergency Medicine; PCP Family Medicine
DX: N40.0 Benign prostatic hyperplasia without lower urinary tract symptoms (principal); Z79.84 Long term (current) use of oral hypoglycemic drugs; J44.9 Chronic obstructive pulmonary disease, unspecified; E11.9 Type 2 diabetes mellitus without complications; I10 Essential (primary) hypertension; Z87.891 Personal history of nicotine dependence
CPT/HCPCS: 99283

== ENCOUNTER → 2024-03-02 09:16 | Outpatient (BNVA) | payer MEDICARE, OTHER, SELFPAY | PROVIDERS: PCP Family Medicine; Visit Provider Clinical Nurse Specialist Adult Health | DX: J06.9 Acute upper respiratory infection, unspecified (principal) | CPT/HCPCS: 87400; 87426 ==

== ENCOUNTER → 2024-08-04 09:28 | Outpatient (BNVA) | payer MEDICARE, OTHER, SELFPAY | PROVIDERS: PCP Family Medicine; Visit Provider Family Medicine | DX: R91.1 Solitary pulmonary nodule (principal); J96.01 Acute respiratory failure with hypoxia; I10 Essential (primary) hypertension; E11.9 Type 2 diabetes mellitus without complications; Z91.89 Other specified personal risk factors, not elsewhere classified; R74.01 Elevation of levels of liver transaminase levels | CPT/HCPCS: 80053; 80061; 83036; 84443; 85025 ==

== ENCOUNTER 2024-08-13 12:50 | Outpatient (CLI) | payer MEDICARE, OTHER, SELFPAY ==
--- NOTE | 2024-08-13 13:15 | US_ITS ---
WS: [id number] ULTRASOUND RENAL TECHNIQUE: Ultrasound examination of both kidneys. CLINICAL INFORMATION: fu on renal mass COMPARISON: 2022 FINDINGS: RIGHT: RIGHT renal cyst measuring 1.8 x 1.6 x 1.9 cm Right kidney is normal in size and appearance. Echogenicity: Normal. Cortical thickness: 1.0 cm; Normal. Hydronephrosis: None. Perinephric fluid: None. Right kidney measures: 10.3 cm x 4.7 cm x 5.2 cm. LEFT: Complex cystic lesion upper pole LEFT kidney measuring 3.3 x 3.6 cm is stable compared to previous. Incidental cyst LEFT lateral kidney measures 1.3 x 1.3 cm. Left kidney is normal in size and appearance. Echogenicity: Normal. Cortical thickness: 1.1 cm; Normal. Hydronephrosis: None. Perinephric fluid: None. Left kidney measures: 11.1 cm x 4.2 cm x 5.9 cm. Normal visualized aorta. Enlarged nodular prostate. This measures 4.4 x 3.9 cm. Mild bladder wall thickening likely due to bladder outlet obstruction. US/US renal BI* [id number] IMPRESSION: 1. No hydronephrosis in either kidney. 2. Complex cystic lesion with internal debris upper pole LEFT kidney measuring 3.3 x 3.6 cm stable compared to previous. Recommend continued ultrasound surve illance in 6 to 12 months. 3. Otherwise incidental renal cysts. 4. Enlarged nodular prostate. Recommend correlation PSA.
[2024-08-13] MEDS: iohexol 350 mg/mL 500 mL Btl (per mL) IV (13:58)
--- NOTE | 2024-08-13 14:00 | CTR_ITS ---
PROCEDURE INFORMATION: Exam: CT Chest With Contrast; Diagnostic Exam date and time: 08/13/2024 1:57 PM Age: 78 years old Clinical indication: Cough; Additional info: Cough/ monitor lung nodules, PT having US too TECHNIQUE: Imaging protocol: Diagnostic computed tomography of the chest with contrast. Radiation optimization: All CT scans at this facility use at least one of these dose optimization techniques: automated exposure control; mA and/or kV adjustment per patient size (includes targeted exams where dose is matched to clinical indication); or iterative reconstruction. Contrast material: OMNI 350; Contrast volume: 100 ml; Contrast route: INTRAVENOUS (IV); COMPARISON: CT chest w con* [id number] 02/04/2022 3:19 PM RADIATION DOSE METRICS: Total DLP (mGy-cm): 455.33 FINDINGS: Lungs: Mild centrilobular emphysema. Stable 6 mm left upper lobe nodule on series 4, image 25. Stable 4 mm nodule in the superior segment left lower lobe on image 23. Stable 4 mm left lower lobe nodule on image 36. Stable 4 mm right upper lobe nodule on image 32. A few additional sub 6 mm nodules bilaterally also appear unchanged. No new or enlarging pulmonary nodules. Pleural spaces: Unremarkable. No pneumothorax. No pleural effusion. Heart: Stable heart size. No pericardial effusion. Calcifications are seen along the aortic valve leaflets. Thoracic aorta is nonaneurysmal with a few scattered atherosclerotic calcifications. Lymph nodes: Unremarkable. No enlarged lymph nodes. Vasculature: See Heart finding. Pancreas: Fatty atrophy of the pancreas. No ductal dilatation. Kidneys: Partially imaged 3.6 cm hypodensity in the left kidney demonstrates no significant interval change from 2021. Bones/joints: Multilevel degenerative changes of the spine along with multilevel anterior osteophytes. No acute or aggressive osseous lesion. Soft tissues: Unremarkable. CT/CT chest w con* [id number] IMPRESSION: 1. No acute findings in the chest. 2. Multiple bilateral pulmonary nodules measuring up to 6 mm have not changed in size since 02/04/2022 and are considered benign given long-term stability. No new or enlarging pulmonary nodules. 3. Mild emphysema. 4. Stable hypodense mass within the left kidney, possibly a hemorrhagic cyst but incompletely characterized on this examination. Consider updated renal ultrasound further evaluate this finding. 5. Aortic valve calcifications can be seen with aortic stenosis.
== END 2024-08-13 12:51 | disposition home or self-care (01) ==
LOC: RAD 12:54
PROVIDERS: PCP Family Medicine; Visit Provider Family Medicine
DX: N28.89 Other specified disorders of kidney and ureter (principal); R91.8 Other nonspecific abnormal finding of lung field; J44.9 Chronic obstructive pulmonary disease, unspecified; I35.8 Other nonrheumatic aortic valve disorders; J43.2 Centrilobular emphysema; K86.89 Other specified diseases of pancreas; M47.9 Spondylosis, unspecified; M25.78 Osteophyte, vertebrae
CPT/HCPCS: 71260; 76770

== ENCOUNTER → 2024-08-23 16:10 | Outpatient (BNVA) | payer MEDICARE, OTHER, SELFPAY | PROVIDERS: PCP Family Medicine; Visit Provider Family Medicine | DX: R31.9 Hematuria, unspecified (principal); N40.1 Benign prostatic hyperplasia with lower urinary tract symptoms; I70.0 Atherosclerosis of aorta | CPT/HCPCS: 81000; 84153 ==

== ENCOUNTER 2024-10-01 12:20 | Outpatient (CLI) | payer MEDICARE, OTHER, SELFPAY ==
--- NOTE | 2024-10-01 12:45 | USCV_ITS ---
Richmond Davis Age: 78 Gender: M : 1945 Exam Date: 10/01/2024 12:49 Ordering Phys: Sean Rivera MD Technologist: MARCIAL [place] [facility] [place]: AO Calc seen on CT BP: 146 / 75 HR: 72 Rhythm: Sinus Technical Quality: Adequate MEASUREMENTS (Male / Female) Normal Values 2D ECHO LV Diastolic Diameter PLAX 6.0 cm 4.2 - 5.9 / 3.9 - 5.3 cm IVS Diastolic Thickness 1.0 cm 0.6 - 1.0 / 0.6 - 0.9 cm IVS Systolic Thickness 1.6 cm LVPW Diastolic Thickness 1.2 cm 0.6 - 1.0 / 0.6 - 0.9 cm LVPW Systolic Thickness 1.7 cm LVOT Diameter 2.0 cm LV Ejection Fraction 2D Teich 57.5 % LV Ejection Fraction MOD 4C 56.5 % LV Ejection Fraction MOD 2C 55.5 % LV Ejection Fraction 2C AL 58.9 % LA Diameter 3.7 cm RA Systolic Volume 4C AL 57.3 ml RA Systolic Volume 4C MOD 52.9 ml LA Sys Volume AL 55.8 cm cubed LA Sys Volume Index AL 25.3 cm cubed/m squared Aorta at Sinotubular Diameter 3.2 cm IVC Diameter 2.5 cm M-MODE LA Ao Ratio MM 1.4 AV Cusp Separation MM 1.8 cm DOPPLER AV Peak Velocity 147.0 cm/s LVOT Peak Velocity 107.0 cm/s AV Area Cont Eq vti 3.2 cm squared AV Area Cont Eq pk 2.2 cm squared MV Peak Velocity 166.0 cm/s MV Area PHT 4.7 cm squared Mitral E to A Ratio 0.4 TV Peak Velocity 231.5 cm/s TR Peak Velocity 295.0 cm/s TR Peak Gradient 34.8 mmHg TV Peak E Velocity 79.0 cm/s PV Peak Velocity 127.0 cm/s FINDINGS Left Ventricle Left ventricle is normal size. LV systolic function is normal with EF of 55-60%. No regional wall motion abnormalities. Grade 1 diastolic dysfunction. Right Ventricle Normal in size and function Right Atrium Normal in size Left Atrium Normal in size Mitral Valve Mild mitral annular calcification. Trace mitral regurgitation. Aortic Valve Mild to moderate thickening of aortic valve. No significant gradient across the aortic valve. Mild aortic regurgitation. Tricuspid Valve Insufficient TR jet to calculate RVSP Pulmonic Valve Not well visualized Pericardium Normal Aorta Normal in size IVC Not well visualizd CONCLUSIONS LV systolic function is normal with EF of 55-60% Grade 1 diastolic dysfunction Trace mitral regurgitation Mild aortic regurgitation Moe Kline MD (Electronically Signed) Final Date: 07 October 2024 11:21 S
== END 2024-10-01 12:21 | disposition home or self-care (01) ==
LOC: RAD 12:21
PROVIDERS: PCP Family Medicine; Visit Provider Family Medicine
DX: R07.9 Chest pain, unspecified (principal); I70.0 Atherosclerosis of aorta; R93.1 Abnormal findings on diagnostic imaging of heart and coronary circulation; I34.81 Nonrheumatic mitral (valve) annulus calcification; I35.8 Other nonrheumatic aortic valve disorders; I35.0 Nonrheumatic aortic (valve) stenosis
CPT/HCPCS: 93306